=== PATIENT | female | born 2000 | race Caucasian/White ===

== ENCOUNTER 2021-01-28 16:05 | Observation (INO) | payer OTHER, SELFPAY ==
[2021-01-28] VITALS (9 sets, daily range): BP systolic 87–131; BP diastolic 54–64; PULSE 64–79
--- NOTE | 2021-01-28 16:48 | PC.NURSE ---
1637- called,informed pt came in by ambulance for what was reported as abdominal pain. On assessment of pt, numerous open sores noted all over pt's arms and legs. 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 Pt is sweating, shaking, fidgeting non stop with the belly band. Pt is c/o rectal pressure and discomfort. SVE performed, pt urinated during exam but cervix is closed,thick and high. I questioned pt about her behavior and asked if she is on any drugs or alcohol now and she denies any use since Feb 2020. I informed pt I would be sending a urine for a drug screen. I also asked pt why she appears so nervous, she said she is just all worked up . Pt continues to change where the pain is and how often she feels is. She has said its rectal pressure, then abdominal discomfort all across the bottom of her abdomen, then uncomfortable between her butt and belly. ordered UDS and UA.
[2021-01-28 18:10] LABS: Amphetamine Screen Urine Negative (Negative); Barbiturate Screen Urine Negative (Negative); Benzodiazepines Screen Urine Negative (Negative); Cannabinoid Screen Urine Positive (Negative); Cocaine Screen Urine Negative (Negative); Methadone Screen Urine Negative (Negative); Opiate Screen Urine Negative (Negative); Phencyclidine Screen Urine Negative (Negative)
[2021-01-28 18:31] LABS: Add Urine Microscopic? YES; Amorphous Sediment Urine Few; Appearance Urine Cloudy (Clear); Bilirubin Urine Negative (Negative); Blood Urine Negative (Negative); Color Urine Yellow (Yellow); Glucose Urine UA Negative (Negative); Ketones Urine Negative (Negative); Leukocyte Esterase Ur Negative LEU/UL (Negative); Nitrate Urine Negative (Negative); Protein Urine Negative (Negative); Specific Grav Ur 1.013 (1.001-1.035); Squamous Epithelial Cell Urine Many /hpf (Few); Urobilinogen Urine Negative mg/dL (<2.0)
--- NOTE | 2021-01-28 18:43 | OBADM ---
This patient, Yue Burns, admitted to the OB room OB Post 113 for observation. Patient/family oriented to hospital policies and general routines including ID bracelet, bed and alarms, visiting hours, pain management, procedures, bathroom and other care routines, personal items, smoking policy, room service/diet, and visiting hours. Patient/Family are encouraged to report perceived risks to care and to ask questions if they do not understand what they are told or what they should do.
--- NOTE | 2021-01-28 19:03 | PC.NURSE ---
Tylenol and food offered to pt. pt states she is feeling much better and would prefer to be d/c'd home. informed pt I would call dr. suarez for orders
--- NOTE | 2021-02-18 12:55 | PM.OBTRLD ---
OB - Triage/Final Diagnosis Visit Information Comments/Additional reasons for admission: I have assessed the risk for this patient, Yue Burns, and determined that she would benefit from observation care. Evaluation Laboratory results: Laboratory Tests 01/28/21 01/28/21 16:58 16:58 Urine Color Yellow Urine Appearance Cloudy H Urine pH 7.0 Ur Specific [place] 1.013 Urine Protein Negative Urine Glucose (UA) Negative Urine Ketones Negative Ur Blood (Man) Negative Urine Nitrate Negative Urine Bilirubin Negative Urine Urobilinogen Negative Leukocyte Esterase Rfl Negative Ur Squamous Epith Cells Many H Amorphous Sediment Few H Urine Opiates Screen Negative Urine Methadone Screen Negative Ur Barbiturates Screen Negative Ur Phencyclidine Scrn Negative Ur Amphetamine Screen Negative U Benzodiazepines Scrn Negative Urine Cocaine Screen Negative U Cannabinoids Screen Positive A Final Diagnosis (1) Abdominal pain affecting : Code(s): O26.899 - Other specified related conditions, unspecified trimester; R10.9 - Unspecified abdominal pain Status: Acute
== END 2021-01-28 19:24 | disposition home or self-care (01) ==
PROVIDERS: Admitting Provider Student in an Organized Health Care Education/Training Program; Visit Provider Student in an Organized Health Care Education/Training Program
DX: O26.892 Other specified pregnancy related conditions, second trimester (principal); R10.9 Unspecified abdominal pain; Z3A.27 27 weeks gestation of pregnancy
CPT/HCPCS: 80307; 81001; G0378; G0379

== ENCOUNTER 2023-04-06 11:38 | Observation (INO) | payer OTHER, SELFPAY ==
--- NOTE | 2023-04-06 11:32 | PC.NURSE ---
While starting to triage patient for n/v she began to c/o lower abdominal cramping. Padmaja, allied health instructor, given brief report and said she would take patient. invasive cardiovascular technologist to transport pt via wheelchair. Patient , GILBERTO 06/17, followed by Dr. Domínguez.
[2023-04-06 11:33] VITALS: BP 140/93; PULSE 89; RESP 16; TEMP 36.4; O2SAT 100
[2023-04-06 11:54] VITALS: BP 125/76; PULSE 79; RESP 20; TEMP 36.2
[2023-04-06 13:01] VITALS: BMI 38.3
--- NOTE | 2023-04-06 13:01 | OBADM ---
This patient, Yue Burns, admitted to the OB room OB 116 for observation for nausea/vomiting Patient/family oriented to hospital policies and general routines including ID bracelet, bed and alarms, visiting hours, pain management, procedures, bathroom and other care routines, personal items, smoking policy, room service/diet, and visiting hours. Patient/Family are encouraged to report perceived risks to care and to ask questions if they do not understand what they are told or what they should do.
[2023-04-06 13:02] LABS: Basophils Absolute Auto 0.1 K/mm3 (0.0-0.1); Basophils Percent Auto 0.5 % (0.2-1.2); Eosinophils Percent Auto 0.3 % (0-4.4); Hematocrit 29.5 % (37.0-47.0); Hemoglobin 9.8 g/dL (12.0-15.0); Immature Granulocyte Absolute 0.08 K/mm3 (0.00-0.031); Immature Granulocyte Percent A 0.6 % (0-0.5); Lymphocytes Absolute Auto 2.16 K/mm3 (0.9-3.2); Lymphocytes Percent Auto 16.2 % (18.3-44.2); Mean Corpuscular HGB Conc 33.2 g/dl (32-36); Mean Corpuscular Hemoglobin 32.6 pg (26-34); Mean Platelet Volume 10.1 fl (7.4-10.4); Monocytes Absolute Auto 0.8 K/mm3 (0.1-0.6); Monocytes Percent Auto 5.9 % (2.6-8.5); Neutrophils Absolute Auto 10.2 K/mm3 (1.3-6.7); Neutrophils Percent Auto 76.5 % (45.5-73.1); Platelet Count Result 417 k/mm3 (150-375); Red Blood Count 3.01 M/mm3 (4.2-5.4); Red Cell Distribution Width 13.2 % (11.5-14.5); White Blood Count 13.3 K/mm3 (4.5-10.0)
[2023-04-06] MEDS: DEXTROSE 5%/LACTATED RINGERS 1,000 ML 999 ML IV CONT (13:03)
[2023-04-06] MEDS: ONDANSETRON INJ 4 MG/2 ML VIAL IV PUSH (13:12)
[2023-04-06] MEDS: FAMOTIDINE 20 MG/2 ML VIAL IV PUSH (13:12)
[2023-04-06 13:14] LABS: Alanine Aminotransferase 23 U/L (6-35); Albumin Level 3.9 g/dL (3.5-5.1); Alkaline Phosphatase 153 U/L (38-126); Anion Gap 9 mmol/L (8-16); Aspartate Amino Transferase 29 U/L (14-36); Bilirubin,Total 0.9 mg/dL (0.2-1.3); Blood Urea Nitrogen 8 mg/dL (7-17); Calcium 9.3 mg/dL (8.4-10.2); Carbon Dioxide 24 mmol/L (22-30); Chloride 106 mmol/L (98-107); Estimated CRCL calculation 177 ml/min; Estimated Glomerular Filt Rate > 60; Glucose 98 mg/dL (65-110); Potassium 3.5 mmol/L (3.4-5.0); Sodium 139 mmol/L (137-145)
--- NOTE | 2023-04-06 13:55 | PC.NURSE ---
RN to bedside. Pt states she is feeling much better, now able to leave urine specimen. Ice chips provided per pt request.
[2023-04-06 14:29] LABS: Appearance Urine Cloudy (Clear); Bacteria Urine 1+ /hpf; Bilirubin Urine 1+ (Negative); Blood Urine Negative (Negative); Color Urine Dark Yellow (Yellow); Glucose Urine UA 2+ mg/dL (Negative); Ketones Urine 4+ mg/dL (Negative); Leukocyte Esterase Ur Trace LEU/UL (Negative); Nitrate Urine Negative (Negative); Protein Urine 1+ mg/dL (Negative); RBC Urine 0-2 /hpf (0-2); Specific Grav Ur 1.024 (1.001-1.035); Squamous Epithelial Cell Urine Many /hpf (Few)
[2023-04-06 14:34] LABS: Add Urine Microscopic? YES
[2023-04-06] MEDS: SCOPOLAMINE 1 MG PATCH 1 PATCH TRANSDERM (15:16)
[2023-04-06] MEDS: PROMETHAZINE HCL 25 MG/ML AMPUL 12.5 MG IV PUSH (15:21)
[2023-04-06 15:29] VITALS: RESP 18; TEMP 36.5
[2023-04-06] MEDS: LACTATED RINGERS 1,000 ML 999 ML IV CONT (15:30)
[2023-04-06] MEDS: DEXTROSE 5%/LACTATED RINGERS 1,000 ML 125 ML IV CONT (16:35)
--- NOTE | 2023-04-06 17:50 | PC.NURSE ---
Discharge instructions given to pt and her mother. Pt verbalized understanding. IV removed, tip intact, bleeding controlled. No further questions or concerns.
--- NOTE | 2023-04-07 19:05 | P.PNOB_ITS ---
OB - Triage/Final Diagnosis Visit Information Date of evaluation: 04/06/23 Reason for evaluation: other (nausea) Comments/Additional reasons for admission: I have assessed the risk for this patient, Yue Burns, and determined that she would benefit from observation care. Evaluation Laboratory results: Laboratory Tests 04/06/23 04/06/23 12:55 14:05 WBC 13.3 H RBC 3.01 L Hgb 9.8 L Hct 29.5 L MCV 98.0 MCH 32.6 MCHC 33.2 RDW 13.2 Plt Count 417 H MPV 10.1 Immature Gran % (Auto) 0.6 H Neut % (Auto) 76.5 H Lymph % (Auto) 16.2 L [place] % (Auto) 5.9 Eos % (Auto) 0.3 Baso % (Auto) 0.5 Lymph # (Auto) 2.16 [place] # (Auto) 0.8 H Eos # (Auto) 0.0 Baso # (Auto) 0.1 Abs Immat Gran (auto) 0.08 H Absolute Neuts (auto) 10.2 H Absolute Nucleated RBC 0.0 Nucleated RBC % 0.0 Sodium 139 Potassium 3.5 Chloride 106 Carbon Dioxide 24 Anion Gap 9 BUN 8 Creatinine 0.50 L Estim Creat Clear Calc 177 Estimated GFR > 60 Glucose 98 Calcium 9.3 Total Bilirubin 0.9 AST 29 ALT 23 Alkaline Phosphatase 153 H Total Protein 7.0 Albumin 3.9 Urine Color Dark yellow Urine Appearance Cloudy H Urine pH 7.0 Ur Specific [place] 1.024 Urine Protein 1+ H Urine Glucose (UA) 2+ H Urine Ketones 4+ H Ur Blood (Man) Negative Urine Nitrate Negative Urine Bilirubin 1+ H Urine Urobilinogen 1.0 Leukocyte Esterase Rfl Trace H Urine RBC 0-2 Urine WBC 6-10 H Ur Squamous Epith Cells Many H Urine Bacteria 1+ H Urine Casts 3-5
== END 2023-04-06 17:55 | disposition home or self-care (01) ==
PROVIDERS: Admitting Provider Obstetrics & Gynecology; Visit Provider Obstetrics & Gynecology
DX: O21.9 Vomiting of pregnancy, unspecified (principal); O26.893 Other specified pregnancy related conditions, third trimester; R10.9 Unspecified abdominal pain; Z3A.29 29 weeks gestation of pregnancy
CPT/HCPCS: 36415; 80053; 81001; 85025; 87086; 96361; 96374; 96375; A9270; G0378; G0379; J2405; J2550; J7120; J7121

== ENCOUNTER 2023-05-31 21:34 | Observation (INO) | payer OTHER, SELFPAY ==
[2023-05-31 21:43] VITALS: BP 124/74; PULSE 79; RESP 16; TEMP 36.6
[2023-05-31 21:46] VITALS: BP 105/67; PULSE 109
[2023-05-31 22:12] VITALS: BMI 35.6
--- NOTE | 2023-05-31 22:12 | OBADM ---
This patient, Yue Burns, admitted to the OB room Labor/Delivery/Recovery 107 for observation. Patient/family oriented to hospital policies and general routines including ID bracelet, bed and alarms, visiting hours, pain management, procedures, bathroom and other care routines, personal items, smoking policy, room service/diet, and visiting hours. Patient/Family are encouraged to report perceived risks to care and to ask questions if they do not understand what they are told or what they should do.
--- NOTE | 2023-05-31 22:16 | PC.NURSE ---
Pt went to bathroom and RN visualized vape in pt bed. Pt stated that the vape belonged to her, RN educated pt on risks of vaping and smoking during as well as hospital smoking and vaping policy. pt verbalizes understanding.
[2023-05-31 22:21] LABS: Add Urine Microscopic? YES; Appearance Urine Clear (Clear); Bacteria Urine None Seen /hpf; Bilirubin Urine Negative (Negative); Blood Urine Non-Hemolyzed Trace (Negative); Color Urine Yellow (Yellow); Glucose Urine UA Negative (Negative); Ketones Urine Negative (Negative); Leukocyte Esterase Ur Trace LEU/UL (Negative); Need Manual Microscopic Reviewed; Nitrate Urine Negative (Negative); Non Pathogenic Casts 0-2; Protein Urine Trace mg/dL (Negative); Specific Grav Ur 1.009 (1.001-1.035); Squamous Epithelial Cell Urine Occasional /hpf (Few); WBC Urine 0-5 /hpf (0-3)
--- NOTE | 2023-06-15 21:59 | P.PNOB_ITS ---
OB - Triage/Final Diagnosis Visit Information Comments/Additional reasons for admission: I have assessed the risk for this patient, Yue Burns, and determined that she would benefit from observation care. Evaluation Laboratory results: Laboratory Tests 05/31/23 22:07 Urine Color Yellow Urine Appearance Clear Urine pH 7.0 Ur Specific [place] 1.009 Urine Protein Trace Urine Glucose (UA) Negative Urine Ketones Negative Ur Blood (Man) Non-hemolyzed trace H Urine Nitrate Negative Urine Bilirubin Negative Urine Urobilinogen 1.0 Add Ur Microanalysis Reviewed Leukocyte Esterase Rfl Trace H Urine RBC 3-5 H Urine WBC 0-5 Ur Squamous Epith Cells Occasional Urine Bacteria None seen Urine Casts 0-2 Final Diagnosis (1) Irregular contractions: Code(s): O47.9 - False labor, unspecified Status: Acute
== END 2023-05-31 23:06 | disposition home or self-care (01) ==
PROVIDERS: Admitting Provider Obstetrics & Gynecology; Visit Provider Obstetrics & Gynecology
DX: O47.9 False labor, unspecified (principal); Z3A.00 Weeks of gestation of pregnancy not specified
CPT/HCPCS: 81001; G0378; G0379

== ENCOUNTER 2023-06-03 19:07 | Inpatient (IN) | payer OTHER, SELFPAY ==
[2023-06-03] VITALS (63 sets, daily range): BP systolic 99–158; BP diastolic 53–102; PULSE 70–113; O2SAT 94–100; BMI 38.7
[2023-06-03 19:50] LABS: Basophils Percent Auto 0.3 % (0.2-1.2); Eosinophils Absolute Auto 0.1 K/mm3 (0-0.3); Eosinophils Percent Auto 0.9 % (0-4.4); Hematocrit 31.4 % (37.0-47.0); Hemoglobin 10.7 g/dL (12.0-15.0); Immature Granulocyte Absolute 0.08 K/mm3 (0.00-0.031); Immature Granulocyte Percent A 0.5 % (0-0.5); Lymphocytes Absolute Auto 2.84 K/mm3 (0.9-3.2); Lymphocytes Percent Auto 19.1 % (18.3-44.2); Mean Corpuscular HGB Conc 34.1 g/dl (32-36); Mean Corpuscular Hemoglobin 33.2 pg (26-34); Mean Corpuscular Volume 97.5 fl (80-100); Mean Platelet Volume 10.3 fl (7.4-10.4); Monocytes Percent Auto 6.7 % (2.6-8.5); Neutrophils Absolute Auto 10.8 K/mm3 (1.3-6.7); Neutrophils Percent Auto 72.5 % (45.5-73.1); Platelet Count Result 400 k/mm3 (150-375); Red Blood Count 3.22 M/mm3 (4.2-5.4); Red Cell Distribution Width 14.1 % (11.5-14.5); White Blood Count 14.9 K/mm3 (4.5-10.0)
--- NOTE | 2023-06-03 19:50 | LDADM ---
This patient, Yue Burns, was admitted to Labor/Delivery/Recovery 106 on 06/03/23 at 19:07. Plans for labor, pain management and were discussed with patient. Patient/family oriented to hospital policies and general routines including ID bracelet, bed and alarms, visiting hours, pain management, procedures, bathroom and other care routines, personal items, smoking policy, room service/diet and guest tray routines, security routines, and visiting hours. Patient/Family are encouraged to report perceived risks to care and to ask questions if they do not understand what they are told or what they should do. See OBIX for further documentation.
[2023-06-03] MEDS: LACTATED RINGERS 1,000 ML 125 ML IV CONT ×2 (20:26→22:00)
[2023-06-03] MEDS: ONDANSETRON INJ 4 MG/2 ML VIAL IV PUSH (20:27)
--- NOTE | 2023-06-03 20:38 | WPDANESEPP ---
Anes - Eval Pre Procedure Procedure: labor epidural Date/Time: 06/03/23 20:38 Surgeon: rose Preop Diagnosis: pain during labor Pre Op Diagnosis: CX Patient Data Age: 23 Gender: F Height: 1.68 m Weight: 109 kg Last Vital Signs Pulse 76 06/03/23 20:15 BP 134/100 H 06/03/23 20:15 Allergies Allergy/AdvReac Type Severity Reaction Status Date / Time No Known Allergies Allergy Verified 06/03/23 20:26 Home Medications Medication Instructions Recorded Confirmed Type Effexor 225 mg PO DAILY 04/06/23 04/06/23 History Vitamin 1 tab-cap PO DAILY 04/06/23 04/06/23 History lamotrigine 150 mg tablet 150 mg PO DAILY 04/06/23 04/06/23 History ondansetron 4 mg disintegrating 4 mg PO Q6H #30 tabs 04/06/23 Rx tablet quetiapine 300 mg tablet 300 mg PO HS 04/06/23 04/06/23 History quetiapine 50 mg tablet 50 mg PO TID 04/06/23 04/06/23 History Laboratory Tests 06/03/23 19:42 WBC 14.9 H K/mm3 (4.5-10.0) RBC 3.22 L M/mm3 (4.2-5.4) Hgb 10.7 L g/dL (12.0-15.0) Hct 31.4 L % (37.0-47.0) MCV 97.5 fl (80-100) MCH 33.2 pg (26-34) MCHC 34.1 g/dl (32-36) RDW 14.1 % (11.5-14.5) Plt Count 400 H k/mm3 (150-375) MPV 10.3 fl (7.4-10.4) Immature Gran % (Auto) 0.5 % (0-0.5) Neut % (Auto) 72.5 % (45.5-73.1) Lymph % (Auto) 19.1 % (18.3-44.2) [place] % (Auto) 6.7 % (2.6-8.5) Eos % (Auto) 0.9 % (0-4.4) Baso % (Auto) 0.3 % (0.2-1.2) Lymph # (Auto) 2.84 K/mm3 (0.9-3.2) [place] # (Auto) 1.0 H K/mm3 (0.1-0.6) Eos # (Auto) 0.1 K/mm3 (0-0.3) Baso # (Auto) 0.0 K/mm3 (0.0-0.1) Abs Immat Gran (auto) 0.08 H K/mm3 (0.00-0.031) Absolute Neuts (auto) 10.8 H K/mm3 (1.3-6.7) Absolute Nucleated RBC 0.000 K/mm3 (0.0-0.012) Nucleated RBC % 0.0 % (0.0-0.2) RPR Pending Blood Type A Positive Antibody Screen Pending Patient hx anesthesia problems: none Family hx anesthesia problems: none Results Review: All pre-operative results and documents have been reviewed as part of the pre-operative evaluation. [facility] Past Medical History Medical History (Updated 06/03/23 @ 20:39 by Shanell Ritter CRNA) Anxiety Bipolar 1 disorder Depression IUP (intrauterine ), incidental Obesity (BMI 30-39.9) Social History Social History Smoking status: Former smoker Tobacco type: cigarettes Second hand tobacco smoke exposure: No Do You Feel Safe in your Home?: No Lack of Transportation: No Lack of Food: Never True Current Housing: I Have Housing Concerned About Future Housing: No Difficulty Paying Gas/Electric Bills: No Difficulty Paying for Meds: No Currently Unemployed: No Education: High School Diploma/GED Difficulty w/ Childcare or Family Care: No Spiritual care concerns: No Exam Day of Procedure 06/03/23 20:38
[2023-06-04] VITALS (54 sets, daily range): BP systolic 107–148; BP diastolic 58–115; PULSE 66–149; RESP 18; TEMP 36.1–36.8; O2SAT 97–100
[2023-06-04] MEDS: LACTATED RINGERS 1,000 ML 125 ML IV CONT (01:12)
[2023-06-04 04:11] LABS: Amphetamine Screen Urine Negative (Negative); Barbiturate Screen Urine Negative (Negative); Benzodiazepines Screen Urine Negative (Negative); Cannabinoid Screen Urine Positive (Negative); Cocaine Screen Urine Negative (Negative); Methadone Screen Urine Negative (Negative); Opiate Screen Urine Negative (Negative); Phencyclidine Screen Urine Negative (Negative)
[2023-06-04] MEDS: OXYTOCIN 30 UNITS/NS 500 ML 30 UNITS/500 ML BAG 999 UNITS IV CONT (04:47)
[2023-06-04] MEDS: miSOPROStol 200 MCG TABLET 1000 MCG RECTAL (04:56)
--- NOTE | 2023-06-04 05:08 | PM.OBPRVD ---
OB - Vaginal Delivery Note Procedure Delivery date: 06/04/23 Induction method: None Delivery augmentation: Rupture of Membranes Delivery monitor: External FHT and External Uterine Route of delivery: Laceration Description: Periurethral and Perineal - 2nd Degree Delivery repair: vicryl Specimen: Yes Quantitative Blood Loss (ml): 700 Anesthesia type: Epidural Complications: No immediate complications Baby Date of : 06/04/23 Time of : 04:42 Weeks of gestation at delivery: 38 Infant gender: Male presentation: vertex Cord Vessel Description: 3 Vessels
[2023-06-04] MEDS: OXYTOCIN 30 UNITS/NS 500 ML 30 UNITS/500 ML BAG 125 UNITS IV CONT (05:33)
[2023-06-04] MEDS: IBUPROFEN 600 MG TABLET PO ×2 (06:35→20:52)
--- NOTE | 2023-06-04 09:38 | PCCCNOTE ---
Addendum entered by EBONY Sanchez 06/04/23 11:16: Received a call from [facility] field traffic investigator, Jose, reporting she will be out to see pt. today. She is unsure if they will have all necessary information this weekend to make decision on going home with mom or not. Original Note: Care Coordination. Patient referred to CC for current [facility] case with 2 year old daughter. Pt. also had positive UDS for marijuana, but baby was not tested. Met with pt. at bedside and her mother was sleeping on couch. Pt. reports having positive support at home living with her parents. She reports has been working with [facility] and close to getting 2 year old back. Two year old is in foster care. She reports FOB is same for both and he lives in [place]. She reports having all necessary baby care items and denies that marijuana use is an issue. She did not feel she would need any center resources either. She reports has been in contact with [facility] and plans to fully setup after returning home with baby. Pt. reports she was diagnosed with Asperger and bipolar depression. She reports seeing 2 different counselors weekly one for each and reports doing well with it. Spoke with Serena Hernandez at [facility] Hotline and she will take pt.'s situation as report and have a worker come out to see pt. Intake . Message left to notify Mira CHILEL. Will follow.
--- NOTE | 2023-06-04 12:25 | PC.NURSE ---
DCFS worker here to see mom, but she is downstairs seeing baby in the level 2 nursery. Copy of badge taken and placed in chart. [facility] worker sent downstairs to nursery to talk to mother
--- NOTE | 2023-06-04 14:14 | PC.NURSE ---
Accidently clicked on the transfer assessment, could not get out of it without charting something, charted and then undid the assessment
[2023-06-04] MEDS: ACETAMINOPHEN 325 MG TABLET 650 MG PO (14:30)
[2023-06-05] VITALS (11 sets, daily range): BP systolic 100–133; BP diastolic 52–93; PULSE 77–98; RESP 16–19; TEMP 36.5–36.9; O2SAT 99–100
[2023-06-05 05:50] LABS: Hematocrit 20.5 % (37.0-47.0); Hemoglobin 6.7 g/dL (12.0-15.0)
--- NOTE | 2023-06-05 07:25 | PCCCNOTE ---
Care Coordination Note: Notified Bijal Lawler at [facility] hotline this a.m. that baby transferred last night to [facility]. Intake ID#[id number] for this call.
[2023-06-05] MEDS: SODIUM CHLORIDE 0.9% IV 250 ML 30 ML IV CONT (08:44)
[2023-06-05] MEDS: IBUPROFEN 600 MG TABLET PO (08:45)
[2023-06-05] MEDS: DOCUSATE SODIUM 100 MG CAPSULE PO (08:45)
[2023-06-05] MEDS: POLYSACCHARIDE IRON COMPLEX 150 MG CAPSULE PO (08:45)
[2023-06-05] MEDS: WITCH HAZEL 40 PADS 1 PAD TOPICAL (08:46)
--- NOTE | 2023-06-05 09:01 | WPDANLDPN2 ---
Anes-Prog Note L&D Date/Time: 06/05/23 09:01 Comfortable throughout: labor and delivery Neuraxial method: epidural Epidural/Spinal procedure site: clean & non-tender Neuro status: Neuro function grossly intact. Cardiovascular status: normal Respiratory status: normal Airway patency: baseline Mental status: baseline Post-Op hydration status: normal Vital Signs: Last Vital Signs Temp 98.5 F 06/05/23 08:58 Pulse 77 06/05/23 08:58 Resp 18 06/05/23 08:58 BP 113/76 06/05/23 08:58 Pulse Ox 100 06/05/23 08:58 O2 Del Method Room Air 06/04/23 14:30 Pain score (VAS): 0 I/O: Intake & Output 06/04/23 06/05/23 06/05/23 23:59 07:59 15:59 Intake Total 240 Balance 240 Post-procedural complaints: none Patient feedback: Patient satisfied with anesthetic care.
--- NOTE | 2023-06-05 10:29 | P.PNOB_ITS ---
OB - PN: Subj Subjective Date/time seen: 06/05/23 10:29 Patient comments: no complaints, pain well controlled, incisional pain, tolerating diet and flatus present OB - PN: Obj Data Labs 06/05/23 05:26 Labs: Laboratory Results - last 24 hr 06/03/23 06/05/23 19:42 05:26 Hgb 6.7 L* D Hct 20.5 L* Blood Type A Positive Antibody Screen Negative Crossmatch See Detail OB - PN A/P Plan day: 1 Plan: routine care Comments: No problems, routine care Time Spent With Patient Time: Total time spent is greater than 50% in coordination of care (as documented) at patient's floor/unit and/or counseling patient: Exam Const: General: comfortable, no acute distress and alert Resp: Effort & Inspection: normal respiratory effort Auscultation: no crackles, no rales and no rhonchi Cardio: Rate: regular rate Heart sounds: no click, no murmurs and no rubs GI: Inspection: non-distended GI Palp: No Tenderness to palpation present ( GI) Auscultation: normal bowel sounds Other: Incision - CDI Extrem: General: normal to inspection, no pedal edema and no calf tenderness
--- NOTE | 2023-06-05 10:31 | PM.OBDSVD ---
DS: Admitting Diagnosis Discharge Date June 05, 2023 Admitting Diagnosis term DS: Discharge Diagnosis Discharge Diagnosis (1) Post term , delivered: Code(s): O48.0 - Post-term Status: Acute OB - DS: Summary OB Procedures : None OB Procedures Intrapartum: Spontaneous Vag Delivery OB Procedures: : None Peripartum Data Laceration Description: Periurethral and Perineal - 2nd Degree Time Spent with Patient Time attestation: Total time spent providing and/or coordinating discharge services: DS: Data Data Completed and Pending Pending studies at discharge: Pending at discharge 06/04/23 05:46 Surgical [PTH] Routine Labs on day of discharge: Labs from last 24 hours 06/05/23 06/03/23 05:26 19:42 Hgb 6.7 L* D Hct 20.5 L* Blood Type A Positive Antibody Screen Negative Crossmatch See Detail Discharge Plan Discharge Discharging Clinician: Wilian Domínguez Patient Disposition: Home, Self-Care Activity: pelvic rest Diet: regular Patient Instructions: Antibiotic Form Stand Alone Forms: General Discharge Information Follow-up/Referrals: Wilian Domínguez MD [Physician] - Discharge Medications: Continued lamotrigine 150 mg tablet 150 mg PO DAILY quetiapine 300 mg tablet 300 mg PO HS quetiapine 50 mg tablet 50 mg PO TID Effexor 225 mg PO DAILY Vitamin 1 tab-cap PO DAILY ondansetron 4 mg Tablet,Disintegrating 4 mg PO Q6H Qty: 30 0RF Date of admission: 06/03/23 19:07 Primary Care Provider: LettyCarolina Admitting Provider: Wilian Domínguez Attending physician on admission: Wilian Domínguez Condition: Stable
[2023-06-06 15:23] VITALS: BP 137/88; PULSE 90; RESP 18; TEMP 36.8; O2SAT 100
[2023-06-07 12:36] LABS: Rapid Plasma Reagin Non-Reactive (NonReactive)
== END 2023-06-05 14:53 | disposition home or self-care (01) | DRG 560 ==
LOC: ANHLDR 19:29 → ANHOB2 06-04 07:36
PROVIDERS: Admitting Provider Obstetrics & Gynecology; PCP Nurse Practitioner Family; Visit Provider Obstetrics & Gynecology
DX: O77.0 Labor and delivery complicated by meconium in amniotic fluid (principal); O71.82 Other specified trauma to perineum and vulva; O70.1 Second degree perineal laceration during delivery; Z3A.38 38 weeks gestation of pregnancy; Z37.0 Single live birth
CPT/HCPCS: 36415; 36430; 80307; 85014; 85018; 85025; 86592; 86850; 86900; 86901; 86923; 88307; A9270; J2405; J2590; J2795; J7050; J7120; P9016

== ENCOUNTER 2024-09-01 14:02 | Observation (INO) | payer OTHER, SELFPAY ==
--- OUTSIDE RECORDS SUMMARY | 2024-09-01 14:08 | XMS_ITS | Clinical Summary ---
Author Organization [facility] Address [address] [place] [address] Phone Care Team Providers Care Nut Feeder Name Role Phone Provider, None Primary Care Provider Unavailabl e Allergies No known active allergies Medications Venlafaxine HCl (EFFEXOR PO) Take 225 mg by mouth daily. Active QUEtiapine (SEROquel) 200 MG Tablet Take 75 mg by mouth 2 times daily. 200 mg at night Active lamoTRIgine (LaMICtal) 25 MG Tablet Take 25 mg by mouth daily. Active melatonin 3 MG Tablet Take 10 mg by mouth nightly. Active ondansetron (ZOFRAN-ODT) 4 MG TABLET DISPERSIBLE Take 1 Tablet by mouth every 8 hours as needed for Nausea - 1st line. 10 Tablet 06/02/2020 Active Social History Tobacco Use Types Packs/Day Years Used Date Smoking Tobacco: Every Day Cigarettes 0.5 2 Smokeless Tobacco: Never Alcohol Use Standard Drinks/Week Comments Never 0 (1 standard drink = 0.6 oz pur e alcohol) Comments Unknown Sex and Gender Information Value Date Recorded Sex Assigned at Not on file Legal Sex Female 5:17 PM CDT Gender Identity Not on file Sexual Orientation Not on file Last Filed Vital Signs Vital Sign Reading Time Taken Comments Blood Pressure 92/63 06/02/2020 2:55 PM CDT Pulse 66 06/02/2020 2:55 PM CDT Temperature 37.2 C (99 F) 06/02/2020 11:47 AM CDT Respiratory Rate 18 06/02/2020 2:55 PM CDT Oxygen Saturation 100% 06/02/2020 2:55 PM CDT Inhaled Oxygen Concentration - - Weight 81.6 kg (180 lb) 06/02/2020 11:47 AM CDT Height 172.7 cm (5' 8) 06/02/2020 11:47 AM CDT Body Mass Index 27.37 06/02/2020 11:47 AM CDT Plan of Treatment Not on file Insurance MEDICAID [place] Care Teams Nut Feeder Relationship Specialty Start Date End Date Provider, Albin MCKEON PCP - General 05/04/20
--- OUTSIDE RECORDS SUMMARY | 2024-09-01 14:08 | XMS_ITS | Encounter Summary ---
Author Organization [facility] Address [facility] [place] [address] Care Team Providers Care Aerophysics Engineer Name Role Phone Carolian Saenz [facility] Primary Care Provider + Bianca Farr MD Unavailable [phone] Daniela Kamara [facility] Primary Care Provider + Reason for Referral * Medication (Routine) - Closed Specialty Diagnoses / Procedures Referred By Contac t Referred To Contact INFUSION THERAPY / [facility] Infusion Therapy Diagnoses Gonorrhea Procedures CEFTRIAXONE SODIUM INJECTION rocephin IM [facility] [address] [place] [address] Phone: tel: [facility] [address] [place] [address] Phone: tel: Referral ID Status Reason Start Date Expiration Date V isits Requested Visits Authorized [id number] Closed Specialty Services 09/05/2020 10/06/2021 1 1 Encounter Details Date Type Department Care Team (Late st Contact Info) Description 09/05/2020 Therapy Plan [facility] [address] [place] [address] Filomena Spring MD [address] [place] [address] Social History Tobacco Use Types Packs/Day Years Used Date Smoking Tobacco: Light Smoker Cigarettes Smokeless Tobacco: Never Comments:vapes with no nicot ine Alcohol Use Standard Drinks/Week Comments No 0 (1 standard drink = 0.6 oz pur e alcohol) AUDIT-C Answer Date Recorded Frequency of Alcohol Consumption Never 07/19/2018 Average Number of Drinks Not on file 019 Frequency of Binge Drinking Not on file 06/22 PHQ-2 Answer Date Recorded PHQ-2 Score - If the patient scores above 3, please move on to questions 3-9 6 07/24/2019 Comments Yes Sex and Gender Information Value Date Recorded Sex Assigned at Female 12/25/2018 3:42 PM SOUND ENGINEERING TECHNICIAN Legal Sex Female 7:39 PM CDT Gender Identity Female 12/25/2018 3:42 PM SOUND ENGINEERING TECHNICIAN Sexual Orientation Straight 12/25/2018 3: 42 PM SOUND ENGINEERING TECHNICIAN COVID-19 Exposure Response Date Recorded In the last month, have you been in contact with someone who was confirmed or suspected to have Coronavirus / COVID-19? No / Unsure 09/04/2020 10:28 AM CDT documented as of this encounter Plan of Treatment Scheduled Referrals Name Type Priority Associated Diagnoses Orde r Schedule Ambulatory referral to Infusion Therapy Referral Routine Gonorrhea Ordered: 09/05/2020 documented as of this encounter Visit Diagnoses Diagnosis Gonorrhea- Primary Gonococcal infection (acute) of lower genitourinary tract documented in this encounter Additional Health Concerns Infection Onset Date Last Indicated Resolved Time COVID-19 Rule Out 12/18/2020 12/18/2020 12/18/2020 7:26 AM CDT COVID-19 Rule Out 12/18/2020 12/18/2020 12/19/2020 7:22 PM CDT COVID-19 Rule Out 10/29/2021 10/29/2021 10/29/2021 8:34 AM CDT COVID-19 Rule Out 02/23/2024 02/23/2024 02/23/2024 3:58 PM SOUND ENGINEERING TECHNICIAN Assessment Noted Time PHQ-9 Depression Total Score: 15 020 2:09 PM CDT documented as of this encounter Care Teams Aerophysics Engineer Relationship Specialty Start Date End Date Carolina Saenz FNP-BC PCP - General Nurse Practitioner Family 07/19/18 Daniela Kamara, [facility] [address], [address] [place] [address] [phone] PCP - General Nurse Practitioner Family 12/13/22 Bianca Farr MD [address] [place] [address] Child and Adolescent Psychiatry 07/19/18 documented as of this encounter
--- OUTSIDE RECORDS SUMMARY | 2024-09-01 14:08 | XMS_ITS | Clinical Summary ---
Author Organization [facility] Address [address] [place] [address] Care Team Providers Care School Age Lead Teacher Name Role Phone Bianca Farr MD Unavailable [phone] Daniela Kamara [facility] Primary Care Provider + Allergies No known active allergies Medications lamoTRIgine 150 MG tablet Take 1 tablet (150 mg total) by mouth daily. Active busPIRone 15 MG tablet Take 1 tablet (15 mg total) by mouth 2 (two) times daily. Active melatonin 5 MG tablet Take 2 tablets (10 mg total) by mouth nightly as needed. Active Doxylamine Succinate, Sleep, (UNISOM OR) Take 1 tablet by mouth daily. 0 Active Ferrous Sulfate (IRON) 325 (65 Fe) MG tablet Take 1 tablet by mouth daily. 1 Active ondansetron 4 MG disintegrating tablet Take 1 tablet (4 mg total) by mouth every 8 (eight) hours as needed for Nausea. 15 tablet 2 Active ondansetron (ZOFRAN-ODT) 4 MG disintegrating tablet Take 1 tablet (4 mg total) by mouth every 8 (eight) hours as needed for Nausea. 10 tablet 2 Active busPIRone (BUSPAR) 15 MG tablet every 12 (twelve) hours. Active QUEtiapine (SEROQUEL) 200 MG tablet Take 1 tablet (200 mg total) by mouth nightly at bedtime. 2 Active QUEtiapine (SEROQUEL) 300 MG tablet Take 1 tablet (300 mg total) by mouth nightly at bedtime. Active QUEtiapine (SEROQUEL) 50 MG tablet Take 1 tablet (50 mg total) by mouth 2 (two) times daily. 3 Active venlafaxine XR (EFFEXOR-XR) 150 MG 24 hr capsule Take 1 capsule (150 mg total) by mouth daily with breakfast. 3 Active venlafaxine XR (EFFEXOR-XR) 75 MG 24 hr capsule Take 1 capsule (75 mg total) by mouth daily with breakfast. 3 Active doxylamine (UNISOM) 25 MG tablet daily. Active lamoTRIgine (LAMICTAL) 100 MG tablet Take 1 tablet (100 mg total) by mouth daily. 3 Active lamoTRIgine (LAMICTAL) 150 MG tablet daily. Active lamoTRIgine (LAMICTAL) 25 MG tablet Take 1 tablet (25 mg total) by mouth daily. 2 Active Active Problems Problem Noted Date Diagnosed Date Vaginal delivery ([facility]) 04/19/2021 Encounter for elective induction of labor ([facility]) 04/16/2021 Immunizations Immunization Administration Dates Next Due Dtap ([facility]cel-Immune) 04/06/2005, 3,2001,09/21,2001 HPV GARDASIL 9-VALENT 03/08/2016,11/22/2015,07/23 Hepatitis A (Generic) 08/20/2009,01/27/2007 Hepatitis B Pediatric 2001,2001,02/21 Hib (Generic) 08/21/2002, 2,2001,08/2001 Influenza (Generic) 01/27/2007,02/08/2003,2002 Influenza Adult (Generic) 03/22/2019,,03/08/2016,02/21,12/27/2013 MENINGOCOCCAL A C Y&W-135 oligosaccharide (MENVEO) 10/09/2012 MMR (MMRII) 04/06/2005,03/21/2002 Pneumococcal (Prevnar 7) 08/21/2002,09/21,2001,02/21 Polio IPV (Ipol) 04/06/2005, 2,2001,0306/2001 Tdap (Generic) 02/03/2021,10/09/2012 Varicella (Varivax) 01/27/2007,03/21/2002 Family History * Patient is adopted Medical History Relation Comments None Brother 1 None Brother 2 None Father None Half-brother 1 None Half-brother 2 None Half-brother 3 None Half-sister None Mother Relation Status Comments Brother 1 Alive Brother 2 Alive Father Alive Half-brother 1 Alive Half-brother 2 Alive Half-brother 3 Alive Half-sister Alive Mother Alive Social History Tobacco Use Types Packs/Day Years Used Date Smoking Tobacco: Former Cigarettes Smokeless Tobacco: Never Tobacco Cessation:Counseling Given: No Comments:vapes with no nicotine Alcohol Use Standard Drinks/Week Comments No 0 (1 standard drink = 0.6 oz pur e alcohol) AUDIT-C Answer Date Recorded Frequency of Alcohol Consumption Never 07/19/2018 Average Number of Drinks Not on file 019 Frequency of Binge Drinking Not on file 06/22 PHQ-2 Answer Date Recorded Patient Health Questionnaire-2 Score 0 08/13/2022 Comments No Sex and Gender Information Value Date Recorded Sex Assigned at Female 12/25/2018 3:42 PM BLEACHER OPERATOR Legal Sex Female 7:39 PM CDT Gender Identity Female 12/25/2018 3:42 PM BLEACHER OPERATOR Sexual Orientation Straight 12/25/2018 3: 42 PM BLEACHER OPERATOR Last Filed Vital Signs Vital Sign Reading Time Taken Comments Blood Pressure 121/82 02/23/2024 12:19 PM BLEACHER OPERATOR Pulse 80 02/23/2024 12:19 PM BLEACHER OPERATOR Temperature 36.7 C (98 F) 02/23/2024 12:19 PM BLEACHER OPERATOR Respiratory Rate 18 02/23/2024 12:19 PM BLEACHER OPERATOR Oxygen Saturation 99% 02/23/2024 12:19 PM BLEACHER OPERATOR Inhaled Oxygen Concentration - - Weight 109.3 kg (241 lb) 02/23/2024 12:19 PM BLEACHER OPERATOR Height 167.6 cm (5' 6) 02/23/2024 12:19 PM BLEACHER OPERATOR Body Mass Index 38.9 02/23/2024 12:19 PM BLEACHER OPERATOR Plan of Treatment Health Maintenance Due Date Last Done Comments Cervical Cancer Screening Pap Smear (Age 21 to 29) Every 3 Years 2001 Cervical Cancer Screening 2001 Annual Physical 01/10/2004 Chlamydia Screening Females ages 16-24 2017 Meningococcal B Vaccine (1 of 2 - Standard) 2017 COVID-19 Vaccine (3 - season) 2023 07/19/2020, 06/21/2020 PHQ-2 (Physician [place]) 02/22/2024 DTaP, Tdap and Td Vaccines (8 - Td or Tdap) 02/03/2031 02/03/2021, 10/09/2012, 04/06/2005, Additional history exists Hepatitis B Vaccines Completed 2001, 2001, 2001 Pneumococcal Vaccine: Pediatrics (0 to 5 Years) and At-Risk Patients (6 to 49 Years) Aged Out 08/21/2002, 2001, 2001, Additional history exists No longer eligible based on patient's age to complete this topic Meningococcal Vaccine Aged Out 10/09/2012 No brodie clari eligible based on patient's age to complete this topic HPV Vaccines Completed 03/08/2016, 02/2015, 08/19/2015 Hepatitis C Completed 07/24/2019 RSV Immunizations Under 20 Months Aged Out No longer eligible based on patient's age to complete this topic Procedures Procedure Name Priority Date/Time Associated Diagnosis Comments HEPATITIS C ANTIBODY Routine 07/24/2019 2:35 PM CDT Potential exposure to STD from Last 3 Months or Most Recently Relevant to Health Maintenance Results * HEPATITIS C ANTIBODY (07/24/2019 2:35 PM CDT) HEPATITIS C AB NON-REACTI VE NON-REACTI VE 07/24/2019 9:17 PM CDT [facility] 07/24/2019 2:35 PM CDT [facility] Final Result [facility] [address] [place] [address], from Last 3 Months or Most Recently Relevant to Health Maintenance Insurance [facility] [facility] Advance Directives * Full Code (Latest Code Status on File) Date Activated Date Inactivated Comments 04/16/2021 10:44 AM 04/17/2021 9:11 AM Care Teams School Age Lead Teacher Relationship Specialty Start Date End Date Daniela Kamara, [employer] [address], [address] [place] [address] PCP - General Nurse Practitioner Family 12/13/22 Bianca Farr MD [address] [place] [address] Child and Adolescent Psychiatry 07/19/18
--- OUTSIDE RECORDS SUMMARY | 2024-09-01 14:08 | XMS_ITS | Encounter Summary ---
Author Organization [facility] Address [facility]ly [facility] [place] [address] Care Team Providers Care Asbestos Shingle Roofer Name Role Phone Letty Carolina [facility] Primary Care Provider + Bianca Farr MD Unavailable [phone] Daniela Kamara [facility] Primary Care Provider + Encounter Details Date Type Department Care Team (Late st Contact Info) Description 09/05/2020 Hospital Orders Only [facility] [address] [place] [address] Filomena Spring MD [address] [place] [address] Social History Tobacco Use Types [...] Sex Assigned at Female 12/25/2018 3:42 PM PHARMACEUTICAL SALES SPECIALIST Legal Sex Female 7:39 PM CDT Gender Identity Female 12/25/2018 3:42 PM PHARMACEUTICAL SALES SPECIALIST Sexual Orientation Straight 12/25/2018 3: 42 PM PHARMACEUTICAL SALES SPECIALIST COVID-19 Exposure Response Date Recorded In the last month, have you been in contact with someone who was confirmed or suspected to have Coronavirus / COVID-19? No / Unsure 09/04/2020 10:28 AM CDT documented as of this encounter Plan of Treatment Not on file documented as of this encounter Visit Diagnoses Not on filedocumented in this encounter Additional Health Concerns Infection Onset Date Last Indicated Resolved Time COVID-19 Rule Out 12/18/2020 12/18/2020 12/18/2020 7:26 AM CDT COVID-19 Rule Out 12/18/2020 12/18/2020 12/19/2020 7:22 PM CDT COVID-19 Rule Out 10/29/2021 10/29/2021 10/29/2021 8:34 AM CDT COVID-19 Rule Out 02/23/2024 02/23/2024 02/23/2024 3:58 PM PHARMACEUTICAL SALES SPECIALIST Assessment Noted Time PHQ-9 Depression Total Score: 15 020 2:09 PM CDT documented as of this encounter Care Teams Asbestos Shingle Roofer Relationship Specialty Start Date End Date Carolina Saenz [facility] PCP - General Nurse Practitioner Family 07/19/18 Daniela Kamara, [facility] [address], [address] [place] [id number] PCP - General Nurse Practitioner Family 12/13/22 Bianca Farr MD [address] [place] [address] Child and Adolescent Psychiatry 07/19/18 documented as of this encounter
--- OUTSIDE RECORDS SUMMARY | 2024-09-01 14:09 | XMS_ITS | Patient Health Record ---
Author Organization [facility] Address [address] [place] [address] Care Team Providers Care Pollution Control Engineer Name Role Phone Zack Chew Primary Care Provider GivensDenisebrodie Soria [phone] Allergies No Known Allergies Results Component Value Reference Range Notes Hemoglobin A1c* Reviewed date:01/06/2024 03:52:48 PM Interpretation: Performing Lab:[facility], [address] [facility], Phone - [phone], Director - Anibal Notes/Report: Hemoglobin A1c 5.3 4.8-5.6 % . Prediabetes: 5.7 - 6.4 Diabetes: >6.4 Glycemic control for adults with diabetes: <7.0 Vitamin B12* Reviewed date:01/06/2024 03:52:43 PM Interpretation: Performing Lab:[facility], [address], [place], Phone - [phone], Director - Anibal Notes/Report: Vitamin B12 534 484-1881 pg/mL CBC With Differential/Platel et* Reviewed date:01/06/2024 02:32:04 PM Interpretation: Performing Lab:[facility], [address], [place], Phone - [phone], Director - Anibal Notes/Report: WBC 7.8 3.4-10.8 x10E3/uL RBC 4.07 3.77-5.28 x10E6/uL Hemoglobin 12.5 11.1-15.9 g/dL Hematocrit 37.7 34.0-46.6 % MCV 93 79-97 fL MCH 30.7 26.6-33.0 pg MCHC 33.2 31.5-35.7 g/dL RDW 13.1 11.7-15.4 % Platelets 511 150-450 x10E3/uL Neutrophils 44 Not Estab. % Lymphs 41 Not Estab. % Monocytes 7 Not Estab. % Eos 7 Not Estab. % Basos 1 Not Estab. % Neutrophils (Absolute) 3.4 1.4-7.0 x10E3/uL Lymphs (Absolute) 3.2 0.7-3.1 x10E3/uL Monocytes(Absolute) 0.6 0.1-0.9 x10E3/uL Eos (Absolute) 0.5 0.0-0.4 x10E3/uL Baso (Absolute) 0.1 0.0-0.2 x10E3/uL Immature Granulocytes 0 Not Estab. % Immature Grans (Abs) 0.0 0.0-0.1 x10E3/uL Vitamin D, 25-Hydroxy* Reviewed date:01/06/2024 03:52:35 PM Interpretation: Performing Lab:[facility] [address] [facility], Phone - [phone], Director - PhDUmass Memorial Medical Centerramon Notes/Report: Vitamin D, 25-Hydroxy 14.3 30.0-100.0 ng/mL Vitamin D deficiency has been defined by the [place] of [employer] and an Endocrine Society practice guideline as a level of serum 25-OH vitamin D less than 20 ng/mL (1,2). The Endocrine Society went on to further define vitamin D insufficiency as a level between 21 and 29 ng/mL (2). 1. IOM ([place] of [employer]). 2010. Dietary reference intakes for calcium and D. [place]: The National Academies Press. 2. Bia MF, Jose NC, Bienvenido CAMP, et al. Evaluation, treatment, and prevention of vitamin D deficiency: an Endocrine Society clinical practice guideline. JCEM. 2010; 96(7):1911-30. TSH+Free T4* Reviewed date:01/06/2024 03:53:00 PM Interpretation: Performing Lab:[facility] [place], [address] [facility], Phone - [phone], Director - PhDRicchiuti Notes/Report: TSH 1.840 0.450-4.500 uIU/mL T4,Free(Direct) 1.11 0.82-1.77 ng/dL Lipid Panel* Reviewed date:01/06/2024 03:52:52 PM Interpretation: Performing Lab:[facility] [place], [address] [facility], Phone - [phone], Director - [facility] Notes/Report: Cholesterol, Total 182 100-199 mg/dL Triglycerides 110 0-149 mg/dL HDL Cholesterol 65 >39 mg/dL VLDL Cholesterol [place] 20 5-40 mg/dL LDL Chol Calc ([facility]) 97 0-99 mg/dL CMP 14 Comprehensive Metabol ic Panel* Reviewed date:01/06/2024 03:52:55 PM Interpretation: Performing Lab:[facility] [place], [address] [facility], Phone - [phone], Director - [facility] Notes/Report: Glucose 89 70-99 mg/dL BUN 10 6-20 mg/dL Creatinine 0.77 0.57-1.00 mg/dL eGFR 112 >59 mL/min/1.73 BUN/Creatinine Ratio 13 9-23 Sodium 138 134-144 mmol/L Potassium 4.7 3.5-5.2 mmol/L Chloride 104 96-106 mmol/L Carbon Dioxide, Total 20 20-29 mmol/L Calcium 9.6 8.7-10.2 mg/dL Protein, Total 7.9 6.0-8.5 g/dL Albumin 5.0 4.0-5.0 g/dL Globulin, Total 2.9 1.5-4.5 g/dL Bilirubin, Total 0.2 0.0-1.2 mg/dL Alkaline Phosphatase 81 44-121 IU/L AST (SGOT) 16 0-40 IU/L ALT (SGPT) 10 0-32 IU/L Hemoglobin A1c* Reviewed date:01/10/2024 09:23:29 AM Interpretation: Performing Lab: Notes/Report: Vitamin B12* Reviewed date:01/10/2024 09:23:16 AM Interpretation: Performing Lab: Notes/Report: CBC With Differential/Platel et* Reviewed date:01/10/2024 09:23:47 AM Interpretation: Performing Lab: Notes/Report: TSH+Free T4* Reviewed date:01/10/2024 09:23:20 AM Interpretation: Performing Lab: Notes/Report: Lipid Panel* Reviewed date:01/10/2024 09:23:24 AM Interpretation: Performing Lab: Notes/Report: CMP 14 Comprehensive Metabol ic Panel* Reviewed date:01/10/2024 09:23:35 AM Interpretation: Performing Lab: Notes/Report: Vitamin D, 25-Hydroxy* Reviewed date:01/10/2024 09:23:13 AM Interpretation: Performing Lab: Notes/Report: Reason For Referral Reason Warm hand off form e mailed for Suicide attempt on 12/24. No current SI. Diagnosis 1 Bipolar 2 disorder ( F31.81) Referral Organization [facility] Referring Provider First Name Luz Elena Referring Provider Last Name Tosha Referring Provider Speciality Psychiatry Referred Provider [facility] Clinical Notes Angelique Levi 01/05/2024 01:39:49 PM > Based off a telephone encounter the client is getting labs on 01-05-24. After labs Bhumi Givens will look at adjustments. Referral Priority Routine Reason Higher PHQ9. Had bee n hospitalized for SI. Meds changed today. Needs/wants to set up therapy. Having to give [place]. Diagnosis 1 Bipolar 2 disorder ( F31.81) Referral Organization [facility] Referring Provider First Name Luz Elena Referring Provider Last Name Tosha Referring Provider Speciality Psychiatry Referred Provider [facility] Clinical Notes Angelique Levi 03/09/2024 08:30:03 AM > PAULINE called client and provided the number for central access to initiate therapy. Client states she preferred to call on her own, PAULINE offered to make phone call with her.Gurmeet Kristina L 03/14/2024 11:08:36 AM >according to TIER, client has called to do the initial therapy intake. The note states that she is supposed to call back on Tue or to schedule her first appt. Note in TIER is from 03-13-24, Luba Patel 04/03/2024 02:56:28 PM > Austin Gurmeet monk Kristina L 04/06/2024 09:03:23 AM >HN called the client to follow up with therapy. HN checked TIER\Gurmeet Kristina L 04/09/2024 01:38:35 PM >HN tried to call the client back and was unable to reach the client. Referral letter sent to client. Can close out the referral if no communication by 3Gurmeet Kristina L 04/12/2024 11:34:29 AM >HN checked TIER. It does not look like client is active in TIER. Referral Priority Routine Medications Medication SIG (Take, Route, Frequency, Duration) Notes Start Date End Date Status lamoTRIgine 150 MG 1 tablet Orally Once a day; Duration: 30 days Active QUEtiapine Fumarate ER 400 MG 1 tablet in the evening Orally Once a day; Duration: 30 days 03/08/2024 Active SEROquel 50 MG 1 tablet morning and mid-day Orally twice a day; Duration: 30 days 05/14/2021 Active Vitamins 28-0.8 MG 1 tablet Ora lly Once a day; Duration: 30 days 07/26/2024 Active Venlafaxine HCl ER 75 MG 1 capsule with food (with 150mg ) Orally Once a day; Duration: 30 days 07/12/2023 Active Unisom 25 MG 1 tablet at bedtime as needed Orally Once a day; Duration: 30 day(s) Active Venlafaxine HCl ER 150 MG 1 capsule with food Orally Once a day; Duration: 30 days Active Ergocalciferol 1.25 MG (14305 UT) 1 capsule Orally once a week; Duration: 30 days 01/06/2024 Active Social History Tobacco Use: Social History Observation Description Date Details (start date - stop date) Former Smoker NA - NA Sex Assigned At : Social History Observation Description Sex Assigned At Female Tobacco Control (Standard) Question Answer Notes Tobacco use: Former smoker Problems Problem Type SNOMED Code ICD Code Onset Dates Problem Status W/U Status Risk Notes Problem Chronic alcoholism in remission (232731507) Alcohol dependence, in remission (F10.21) Active confirmed Problem Stimulant dependence (859168977) Other stimulant dependence, 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) Active confirmed Problem Tobacco user (041782124) Nicotine dependence, unspecified, uncomplicated (F17.200) Active confirmed Problem Post-traumatic stress disorder (35438288) Post-traumatic stress disorder, unspecified (F43.10) 2 Active confirmed Problem Autism (59150868) Autism (F84.0) 2 Active confirmed Problem Bipolar 2 disorder (94840953) Bipolar 2 disorder (F31.81) 2 Active confirmed Problem Chronic vaginitis (53778690) Chronic vaginitis (N76.1) Active confirmed Problem Cannabis dependence (68721441) Cannabis use disorder, severe, dependence (F12.20) Active confirmed Encounters Encounter Location Date Provider Diagnosis [address] [place] [address] 01/05/2024 Luz Elena Givens Bipolar 2 disorder F31.81 [address] [place] [address] 10/05/2023 Luz Elena Givens Bipolar 2 disorder F31.81 and Autism F84.0 [address] [place] [address] 01/03/2024 Luz Elena Givens Bipolar 2 disorder F31.81 and Autism F84.[address] [place] [address] 01/13/2024 Luz Elena Givens Bipolar 2 disorder F31.81 ; Autism F84.0 and Post-traumatic stress disorder, unspecified F43.10 [address] [place] [address] 03/08/2024 Luz Elena Givens Bipolar 2 disorder F31.81 ; Autism F84.0 and Post-traumatic stress disorder, unspecified F43.10 [address] [place] [address] 05/24/2024 Luz Elena Givens Autism F84.0 ; Bipolar 2 disorder F31.81 and Post-traumatic stress disorder, unspecified F43.10 [address] [place] [address] 07/26/2024 Luz Elena Givens Bipolar 2 disorder F31.81 ; Autism F84.0 and Post-traumatic stress disorder, unspecified F43.10 [address] [place] [address] 09/26/2023 Luz Elena Givens Bipolar 2 disorder F31.[address] [place] [address] 09/30/2023 Zack Chew Bipolar 2 disorder F31.81 [facility] [address] [place] [address] 12/26/2023 Luz Elena Givens Bipolar 2 disorder F31.[address] [place] [address] 01/04/2024 Luz Elena Givens [facility] [address] [place] [address] 01/05/2024 Zack Chew Bipolar 2 disorder F31.[address] [place] [address] 01/06/2024 Zack Chew [facility] [address] [place] [address] 01/17/2024 Luz Elena Givens [facility] [address] [address] 01/17/2024 Luz Elena Givens Bipolar 2 disorder F31.81 [address] [place] [address] 02/23/2024 Luz Elena Givens [address] [place] [address] 05/10/2024 Luz Elena Givens Bipolar 2 disorder F31.[address] [place] [address] 07/20/2024 Luz Elena Givens Autism F84.0 Assessments Encounter Date Diagnosis (ICD Code) Assessment Notes Treatment Notes Treatment Clinical Notes Section Notes 09/26/2023 Bipolar 2 disorder (ICD-10 - F31.81) 09/30/2023 Bipolar 2 disorder (ICD-10 - F31.81) 01/03/2024 Bipolar 2 disorder (ICD-10 - F31.81) CancelRx Response got Denied on 2024-01-05 16:44:03 for 'ARIPiprazole 5 MG Tablet'Pharmacy Notes: Unable to Cancel Rx. Please contact Pharmacy 01/05/2024 Bipolar 2 disorder (ICD-10 - F31.81) 01/05/2024 Bipolar 2 disorder (ICD-10 - F31.81) 10/05/2023 Bipolar 2 disorder (ICD-10 - F31.81) Continue current medications. Continue services as scheduled. Labs completed recently. May self-administer medications or be administered own oral medications per [facility] protocols. Provided informed consent with understanding of side effects, adverse effects, risks and benefits as well as alternative treatments as previously discussed and with the above recommended medications & other aspects of the treatment program. Agrees to return sooner if symptoms worsen or suicidal or homicidal ideations occur. 12/26/2023 Bipolar 2 disorder (ICD-10 - F31.81) 01/13/2024 Bipolar 2 disorder (ICD-10 - F31.81) Resume previous dose of Seroquel. Continue therapy. Contact Crisis line, hospital or 8, if symptoms worsen or having suicidal thoughts. May self-administer medications or be administered own oral medications per [facility] protocols. Provided informed consent with understanding of side effects, adverse effects, risks and benefits as well as alternative treatments as previously discussed and with the above recommended medications & other aspects of the treatment program. Agrees to return sooner if symptoms worsen or suicidal or homicidal ideations occur. 01/17/2024 Bipolar 2 disorder (ICD-10 - F31.81) 03/08/2024 Bipolar 2 disorder (ICD-10 - F31.81) Increase Seroquel to help with Mood instability and sleep. Continue services as scheduled- set up therapy. Labs completed recently. May self-administer medications or be administered own oral medications per [facility] protocols. Provided informed consent with understanding of side effects, adverse effects, risks and benefits as well as alternative treatments as previously discussed and with the above recommended medications & other aspects of the treatment program. Agrees to return sooner if symptoms worsen or suicidal or homicidal ideations occur. 05/10/2024 Bipolar 2 disorder (ICD-10 - F31.81) 05/24/2024 Autism (ICD-10 - F84.0) Continue current medications. Follow up with OB. Continue services as scheduled. Labs completed recently. May self-administer medications or be administered own oral medications per [facility] protocols. Provided informed consent with understanding of side effects, adverse effects, risks and benefits as well as alternative treatments as previously discussed and with the above recommended medications & other aspects of the treatment program. Agrees to return sooner if symptoms worsen or suicidal or homicidal ideations occur. 07/20/2024 Autism (ICD-10 - F84.0) 07/26/2024 Bipolar 2 disorder (ICD-10 - F31.81) Continue current medications. Continue services as scheduled. Labs completed recently. May self-administer medications or be administered own oral medications per [employer] protocols. Provided informed consent with understanding of side effects, adverse effects, risks and benefits as well as alternative treatments as previously discussed and with the above recommended medications & other aspects of the treatment program. Agrees to return sooner if symptoms worsen or suicidal or homicidal ideations occur. 07/26/2024 Autism (ICD-10 - F84.0) 05/24/2024 Bipolar 2 disorder (ICD-10 - F31.81) 01/13/2024 Autism (ICD-10 - F84.0) 03/08/2024 Autism (ICD-10 - F84.0) 01/03/2024 Autism (ICD-10 - F84.0) 10/05/2023 Autism (ICD-10 - F84.0) 01/13/2024 Post-traumatic stress disorder, unspecified (ICD-10 - F43.10) 03/08/2024 Post-traumatic stress disorder, unspecified (ICD-10 - F43.10) 05/24/2024 Post-traumatic stress disorder, unspecified (ICD-10 - F43.10) 07/26/2024 Post-traumatic stress disorder, unspecified (ICD-10 - F43.10) 01/03/2024 Other She has already restarted medication. Transition to Abilify instead of Seroquel. Labs ordered. Continue services as scheduled. Refferred to Crisis with a warm hand off. May self-administer medications or be administered own oral medications per [facility] protocols. Provided informed consent with understanding of side effects, adverse effects, risks and benefits as well as alternative treatments as previously discussed and with the above recommended medications & other aspects of the treatment program. Agrees to return sooner if symptoms worsen or suicidal or homicidal ideations occur. Plan Of Treatment Future Test Test Name Order Date HIV Screen *HIV 1, 2 Ab, p24 Ag ([id number]) 04/16/2020 Urinalysis, Routine 04/16/2020 RPR* 04/16/2020 Chlamydia trachomatis,Neisse elayne gonorrhoeae, and Trichomonas vaginalis, EDMOND ([id number]) 04/16/2020 Insurance Providers Payer Name Payer Address Payer Phone Subscriber Number Group Number Insured Name Patient Relationship to Insured Coverage Start Date Coverage End Date [employer] [address] [place] [address] [id number] Yue Burns Self - patient is the insured 0 [employer] [address] [place] [address] [id number] Yue Burns Self - patient is the insured 0 1 [employer] [address] [place] [address] [id number] Yue Burns Self - patient is the insured 2 2 [employer] [address] [place] [address] [id number] Yue Burns Self - patient is the insured 2 Medical (General) History Medical History History ICD Code Substance use disorder Autism spectrum MDD JAMES Split personality disorder Bipolar I disorder Surgical History Surgery Date(Month/Year) TM tubes x2 Removal of hemangioma Tonsillectomy Adenoidectomy Hospitalization History Reason Date(Month/Year) Multiple psychiatric hospitalization
[2024-09-01 14:38] VITALS: BP 99/50; PULSE 86
[2024-09-01 14:45] VITALS: BP 106/48; PULSE 86
[2024-09-01 14:59] LABS: Add Urine Microscopic? YES; Appearance Urine Cloudy (Clear); Glucose Urine UA Negative (Negative); Leukocyte Esterase Ur 1+ LEU/UL (Negative); Nitrate Urine Negative (Negative); Non Pathogenic Casts 0-2; Specific Grav Ur 1.013 (1.001-1.035)
[2024-09-01 15:00] VITALS: BP 99/58; PULSE 86; TEMP 36.6
[2024-09-01 15:22] VITALS: BMI 44.5
--- NOTE | 2024-09-01 15:23 | OBADM ---
This patient, Yue Burns, admitted to the OB room OB Post 116 for observation. Patient/family oriented to hospital policies and general routines including ID bracelet, bed and alarms, visiting hours, pain management, procedures, bathroom and other care routines, personal items, smoking policy, room service/diet, and visiting hours. Patient/Family are encouraged to report perceived risks to care and to ask questions if they do not understand what they are told or what they should do.
--- NOTE | 2024-09-30 21:15 | PM.OBTRLD ---
OB - Triage/Final Diagnosis Visit Information Comments/Additional reasons for admission: I have assessed the risk for this patient, Yue Burns, and determined that she would benefit from observation care. Evaluation Laboratory results: Laboratory Tests 09/01/24 14:47 Urine Color Yellow Urine Appearance Cloudy H Urine pH 7.5 Ur Specific [place] 1.013 Urine Protein Negative Urine Glucose (UA) Negative Urine Ketones Negative Ur Blood (Man) Negative Urine Nitrate Negative Urine Bilirubin Negative Urine Urobilinogen 0.2 Leukocyte Esterase Rfl 1+ H Urine RBC 0-2 Urine WBC 11-20 H Ur Squamous Epith Cells Many H Urine Bacteria 1+ H Urine Casts 0-2 Final Diagnosis (1) Vaginal pain: Code(s): R10.2 - Pelvic and perineal pain Status: Acute
== END 2024-09-01 16:42 | disposition home or self-care (01) ==
PROVIDERS: Admitting Provider Obstetrics & Gynecology; PCP Nurse Practitioner Family; Visit Provider Obstetrics & Gynecology
DX: O26.893 Other specified pregnancy related conditions, third trimester (principal); R10.2 Pelvic and perineal pain; Z3A.33 33 weeks gestation of pregnancy
CPT/HCPCS: 81001; G0378; G0379

== ENCOUNTER 2024-10-07 19:15 | Observation (INO) | payer OTHER, SELFPAY ==
[2024-10-07] VITALS (16 sets, daily range): BP systolic 115–126; BP diastolic 67–94; PULSE 77–118; O2SAT 95–99; BMI 45.8
--- NOTE | ~2024-10-07 | US_ITS ---
EXAM: US OB limited w BPP - 10/08/2024 7:23 CDT History: 24 years old Female with heart rate decelerations Comparison: None available. Technique Real time transabdominal obstetric sonographic imaging was performed. Findings A single live intrauterine gestation is identified. Lie: longitudinal Presentation: vertex heart rate: 131 beats per minute Placental position: Posterior SAMANTHA: 7.92 cm, which is between the 7.2 cm corresponding to 5 th and 22.6 cm corresponding to 95 th pe rcentiles. Biophysical profile: breathing movement: 2 Gross body movement: 2 tone: 2 Qualitative AFV: 2 Total BPP score: 8 of 8. Impression Total biophysical profile score is 8 out of 8. Reviewed, dictated and finalized at location A. Impression Total biophysical profile score is 8 out of 8.
--- OUTSIDE RECORDS SUMMARY | 2024-10-07 19:21 | XMS_ITS | Clinical Summary ---
Author Organization [facility] Address [address] [place] [address] Care Team Providers Care Teacher Tutor Name Role Phone Bianca Farr MD Unavailable [phone] Daniela Kamara [facility] Primary Care Provider + Allergies No known [...] Problem Noted Date Diagnosed Date Vaginal delivery ([facility]) 04/19/2021 Encounter for elective induction of labor ([facility]) 04/16/2021 Immunizations Immunization Administration Dates Next [...] Sex Assigned at Female 12/25/2018 3:42 PM DIE REAMER Legal Sex Female 7:39 PM CDT Gender Identity Female 12/25/2018 3:42 PM DIE REAMER Sexual Orientation Straight 12/25/2018 3: 42 PM DIE REAMER Last Filed Vital Signs Vital Sign Reading Time Taken Comments Blood Pressure 121/82 02/23/2024 12:19 PM DIE REAMER Pulse 80 02/23/2024 12:19 PM DIE REAMER Temperature 36.7 C (98 F) 02/23/2024 12:19 PM DIE REAMER Respiratory Rate 18 02/23/2024 12:19 PM DIE REAMER Oxygen Saturation 99% 02/23/2024 12:19 PM DIE REAMER Inhaled Oxygen Concentration - - Weight 109.3 kg (241 lb) 02/23/2024 12:19 PM DIE REAMER Height 167.6 cm (5' 6) 02/23/2024 12:19 PM DIE REAMER Body Mass Index 38.9 02/23/2024 12:19 PM DIE REAMER Plan of Treatment Health Maintenance Due Date Last Done Comments Cervical Cancer Screening Pap Smear (Age 21 to 29) Every 3 Years 2001 Cervical Cancer Screening 2001 Annual Physical 01/10/2004 Chlamydia Screening Females ages 16-24 2017 Meningococcal B Vaccine (1 of 2 - Standard) 2017 COVID-19 Vaccine (3 - season) 2023 07/19/2020, 06/21/2020 PHQ-2 (Physician [place]) 02/22/2024 DTaP, Tdap and Td Vaccines (8 [...] VE NON-REACTI VE 07/24/2019 9:17 PM CDT [facility] 07/24/2019 2:35 PM CDT [facility] Final Result [facility] [address] [place] [address], from Last 3 Months or Most Recently Relevant to Health Maintenance Insurance [facility] Advance Directives * Full Code (Latest Code Status on File) Date Activated Date Inactivated Comments 04/16/2021 10:44 AM 04/17/2021 9:11 AM Care Teams Teacher Tutor Relationship Specialty Start Date End Date Daniela Kamara, [employer] [address], [address] [place] [address] PCP - General Nurse Practitioner Family 12/13/22 Bianca Farr MD [address] [place] [address] Child and Adolescent Psychiatry 07/19/18
--- OUTSIDE RECORDS SUMMARY | 2024-10-07 19:21 | XMS_ITS | Encounter Summary ---
Author Organization [facility] Address [facility] [place] [address] Care Team Providers Care Community Support Specialist Name Role Phone Carolina Saenz [facility] Primary Care Provider + Bianca Farr MD Unavailable [phone] Daniela Kamara [facility] Primary Care Provider + Reason for Referral * Medication (Routine) - Closed Specialty Diagnoses / Procedures Referred By Contac t Referred To Contact INFUSION THERAPY / [facility] Infusion Therapy Diagnoses Gonorrhea Procedures CEFTRIAXONE SODIUM INJECTION rocephin IM [facility] [address] [place] [address] Phone: tel: [facility] [address] [place] [address] Phone: tel: Referral ID Status Reason Start Date Expiration Date V isits Requested Visits Authorized [id number] Closed Specialty Services 09/05/2020 10/06/2021 1 1 Encounter Details Date Type Department Care Team (Late st Contact Info) Description 09/05/2020 Therapy Plan [facility] [address] [place] [address] Filomena Spring MD [address] [place] [address] Social History Tobacco Use Types [...] Sex Assigned at Female 12/25/2018 3:42 PM MAJOR ACCOUNT REPRESENTATIVE Legal Sex Female 7:39 PM CDT Gender Identity Female 12/25/2018 3:42 PM MAJOR ACCOUNT REPRESENTATIVE Sexual Orientation Straight 12/25/2018 3: 42 PM MAJOR ACCOUNT REPRESENTATIVE COVID-19 Exposure Response Date Recorded In the [...] Rule Out 02/23/2024 02/23/2024 02/23/2024 3:58 PM MAJOR ACCOUNT REPRESENTATIVE Assessment Noted Time PHQ-9 Depression Total Score: 15 020 2:09 PM CDT documented as of this encounter Care Teams Community Support Specialist Relationship Specialty Start Date End Date Carolina Saenz FNP-BC PCP - General Nurse Practitioner Family 07/19/18 Daniela Kamara, [facility] [address], [address] [place] [phone] PCP - General Nurse Practitioner Family 12/13/22 Bianca Farr MD [address] [place] [address] Child and Adolescent Psychiatry 07/19/18 documented as of this encounter
--- OUTSIDE RECORDS SUMMARY | 2024-10-07 19:21 | XMS_ITS | Clinical Summary ---
Author Organization [facility] Address [address] [place] [address] Phone Care Team Providers Care Staff Interpreter Name Role Phone Kenia Monzon MD Primary Care Provider + Allergies No known active allergies Family History Relation Name Status Comments Brother Alive Father Alive Mother Alive Social History Tobacco Use Types Packs/Day Years Used Date Smoking Tobacco: Never Smokeless Tobacco: Never Alcohol Use Standard Drinks/Week Comments No 0 (1 standard drink = 0.6 oz pur e alcohol) Comments Unknown Sex and Gender Information Value Date Recorded Sex Assigned at Not on file Legal Sex Female 2:49 PM DIRECTOR BUSINESS SYSTEMS Gender Identity Not on file Sexual Orientation Not on file Last Filed Vital Signs Vital Sign Reading Time Taken Comments Blood Pressure 122/79 01/27/2018 2:51 PM DIRECTOR BUSINESS SYSTEMS Pulse - - Temperature 36.4 C (97.5 F) 01/27/2018 2:51 PM DIRECTOR BUSINESS SYSTEMS Respiratory Rate 16 01/27/2018 2:51 PM DIRECTOR BUSINESS SYSTEMS Oxygen Saturation 99% 01/27/2018 2:51 PM DIRECTOR BUSINESS SYSTEMS Inhaled Oxygen Concentration - - Weight 129.3 kg (285 lb) 01/27/2018 2:58 PM DIRECTOR BUSINESS SYSTEMS Height 160 cm (5' 3) 01/27/2018 2:58 PM DIRECTOR BUSINESS SYSTEMS Body Mass Index 50.49 01/27/2018 2:58 PM DIRECTOR BUSINESS SYSTEMS Plan of Treatment Health Maintenance Due Date Last Done Comments CHLAMYDIA SCREENING (ANNUAL) 11-24 YEARS 01/10/2012 HPV VACCINES (1 - 3-dose series) 01/10/2016 DTAP/TDAP/TD VACCINES (1 - Tdap) 01/10/2020 HEPATITIS B VACCINES (1 of 3 - 19+ 3-dose series) 12/22 CERVICAL CANCER SCREENING 2022 HPV/Cotest (21-29) 2022 PAP SMEAR 2022 INFLUENZA VACCINE (#1) 2024 Insurance [employer] Care Teams Staff Interpreter Relationship Specialty Start Date End Date Kenia Monzon MD [address] [facility] [place] [address] PCP - General Pediatrics 01/27/18
--- OUTSIDE RECORDS SUMMARY | 2024-10-07 19:21 | XMS_ITS | Patient Health Record ---
Author Organization [facility] Address [address] [place] [address] Care Team Providers Care Heliarc Welder Name Role Phone Zack Chew Primary Care Provider GivensDenisebrodie Soria [phone] Allergies No Known Allergies Results Component Value Reference Range Notes Hemoglobin A1c* Reviewed date:01/06/2024 03:52:48 PM Interpretation: Performing Lab:[facility], [address] [facility], Phone - [phone], Director - Anibal Notes/Report: Hemoglobin A1c 5.3 4.8-5.6 % . Prediabetes: 5.7 - 6.4 Diabetes: >6.4 Glycemic control for adults with diabetes: <7.0 Vitamin B12* Reviewed date:01/06/2024 03:52:43 PM Interpretation: Performing Lab:[facility], [address], [place], Phone - [phone], Director - Anibal Notes/Report: Vitamin B12 381 495-9417 pg/mL CBC With Differential/Platel et* Reviewed date:01/06/2024 02:32:04 PM Interpretation: Performing Lab:[facility], [address], [place], Phone - [phone], Director - Anibal Notes/Report: WBC 7.8 3.4-10.8 [...] 25-Hydroxy* Reviewed date:01/06/2024 03:52:35 PM Interpretation: Performing Lab:[facility] [place] [address] [facility], Phone - [phone], Director - [facility] Notes/Report: Vitamin D, 25-Hydroxy 14.3 30.0-100.0 ng/mL Vitamin D deficiency has been defined by the [place] of Medicine and an Endocrine Society practice guideline as a level of serum 25-OH vitamin D less than 20 ng/mL (1,2). The Endocrine Society went on to further define vitamin D insufficiency as a level between 21 and 29 ng/mL (2). 1. IOM ([place] of Medicine). 2010. Dietary reference intakes for calcium and D. [place]: The National Academies Press. 2. Bia MF, Jose NC, Bienvenido CAMP, et al. Evaluation, treatment, and prevention of vitamin D deficiency: an Endocrine Society clinical practice guideline. JCEM. 2010; 96(7):1911-30. TSH+Free T4* Reviewed date:01/06/2024 03:53:00 PM Interpretation: Performing Lab:[facility] [place], [address] [facility], Phone - [phone], Director - PhDRicchiuti Notes/Report: TSH 1.840 0.450-4.500 uIU/mL T4,Free(Direct) 1.11 0.82-1.77 ng/dL Lipid Panel* Reviewed date:01/06/2024 03:52:52 PM Interpretation: Performing Lab:[facility] [place], [address] [facility], Phone - [phone], Director - [facility] Notes/Report: Cholesterol, Total 182 100-199 mg/dL Triglycerides 110 0-149 mg/dL HDL Cholesterol 65 >39 mg/dL VLDL Cholesterol Lamont 20 5-40 mg/dL LDL Chol Calc ([facility]) 97 0-99 mg/dL CMP 14 Comprehensive Metabol ic Panel* Reviewed date:01/06/2024 03:52:55 PM Interpretation: Performing Lab:[facility] [place], [address] [facility], Phone - [phone], Director - [facility] Notes/Report: Glucose 89 70-99 mg/dL [...] Bipolar 2 disorder ( F31.81) Referral Organization [facility] Referring Provider First Name Luz Elena Referring Provider Last Name Tosha Referring Provider Speciality Psychiatry Referred Provider Specialty [facility] Clinical Notes Angelique Levi 01/05/2024 01:39:49 PM > Based off a telephone encounter the client is getting labs on 01-05-24. After labs Bhumi Gievns will look at adjustments. Referral Priority Routine Reason Higher PHQ9. Had bee n hospitalized for SI. Meds changed today. Needs/wants to set up therapy. Having to give up parental rights of [place] to [place] next [place]. Diagnosis 1 Bipolar 2 disorder ( F31.81) Referral Organization [facility] Referring Provider First Name Luz Elena Referring Provider Last Name Tosha Referring Provider Speciality Psychiatry Referred Provider Specialty [facility] Clinical Notes Angelique Levi 03/09/2024 08:30:03 AM [...] 03-13-24, Luba Patel 04/03/2024 02:56:28 PM > [place] [facility] monk Kristina L 04/06/2024 09:03:23 AM [...] Duration: 30 days Active Ergocalciferol 1.25 MG (00890 UT) 1 capsule Orally once a week; [...] Risk Notes Problem Chronic alcoholism in remission (605762813) Alcohol dependence, in remission (F10.21) Active confirmed Problem Stimulant dependence (602168191) Other stimulant dependence, 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) Active confirmed Problem Tobacco user (446380254) Nicotine dependence, unspecified, uncomplicated (F17.200) Active confirmed Problem Post-traumatic stress disorder (22227106) Post-traumatic stress disorder, unspecified (F43.10) 2 Active confirmed Problem Autism (59234680) Autism (F84.0) 2 Active confirmed Problem Bipolar 2 disorder (18854580) Bipolar 2 disorder (F31.81) 2 Active confirmed Problem Chronic vaginitis (71411967) Chronic vaginitis (N76.1) Active confirmed Problem Cannabis dependence (54663704) Cannabis use disorder, severe, dependence (F12.20) Active confirmed Encounters Encounter Location Date Provider Diagnosis [address] [place] [address] 01/05/2024 Luz Elena Givens Bipolar 2 disorder F31.81 [address] [place] [address] 01/03/2024 Luz Elena Givens Bipolar 2 disorder F31.81 and Autism F84.[address] [place] [address] 01/13/2024 Luz Elena Givens Bipolar 2 disorder F31.81 ; Autism F84.0 and Post-traumatic stress disorder, unspecified F43.10 [address] [place] [address] 03/08/2024 Luz Elena Givens Bipolar 2 disorder F31.81 ; Autism F84.0 and Post-traumatic stress disorder, unspecified F43.10 [address] [address] [place] [address] 05/24/2024 Luz Elena Givens Autism F84.0 ; Bipolar 2 disorder F31.81 and Post-traumatic stress disorder, unspecified F43.10 [address] [place] [address] 07/26/2024 Luz Elena Givens Bipolar 2 disorder F31.81 ; Autism F84.0 and Post-traumatic stress disorder, unspecified F43.10 [address] [address] [place] [address] 12/26/2023 Luz Elena Givens Bipolar 2 disorder F31.[address] [place] [address] 01/04/2024 Luz lEena Givens [facility] [address] [place] [address] 01/05/2024 Zack Chew Bipolar 2 disorder F31.[address] [place] [address] 01/06/2024 Zack Chew [facility] [address] [facility] [address] 01/17/2024 Luz Elena Powers [facility] [address] [place] [address] 01/17/2024 Luz Elena Givens Bipolar 2 disorder F31.81 [facility] [address] [facility] [address] 02/23/2024 Luz Elena Powers [address] [place] [address] 05/10/2024 Luz Elena Powers Bipolar 2 disorder F31.[address] [place] [address] 07/20/2024 Luz Elena Givens Autism F84.0 Assessments Encounter Date Diagnosis (ICD Code) Assessment Notes Treatment Notes Treatment Clinical Notes Section Notes 07/26/2024 Bipolar 2 disorder (ICD-10 - F31.81) Continue current medications. Continue services as scheduled. Labs completed recently. May self-administer medications or be administered own oral medications per [employer] protocols. Provided informed consent with understanding of side effects, adverse effects, risks and benefits as well as alternative treatments as previously discussed and with the above recommended medications & other aspects of the treatment program. Agrees to return sooner if symptoms worsen or suicidal or homicidal ideations occur. 07/20/2024 Autism (ICD-10 - F84.0) 05/24/2024 Autism (ICD-10 - F84.0) Continue current medications. Follow up with OB. Continue services as scheduled. Labs completed recently. May self-administer medications or be administered own oral medications per [employer] protocols. Provided informed consent with understanding of side effects, adverse effects, risks and benefits as well as alternative treatments as previously discussed and with the above recommended medications & other aspects of the treatment program. Agrees to return sooner if symptoms worsen or suicidal or homicidal ideations occur. 05/10/2024 Bipolar 2 disorder (ICD-10 - F31.81) 03/08/2024 Bipolar 2 disorder (ICD-10 - F31.81) Increase Seroquel to help with Mood instability and sleep. Continue services as scheduled- set up therapy. Labs completed recently. May self-administer medications or be administered own oral medications per [place] protocols. Provided informed consent with understanding of side effects, adverse effects, risks and benefits as well as alternative treatments as previously discussed and with the above recommended medications & other aspects of the treatment program. Agrees to return sooner if symptoms worsen or suicidal or homicidal ideations occur. 01/17/2024 Bipolar 2 disorder (ICD-10 - F31.81) 01/13/2024 Bipolar 2 disorder (ICD-10 - F31.81) Resume previous dose of Seroquel. Continue therapy. Contact Crisis line, hospital or On license of [facility], if symptoms worsen or having suicidal thoughts. May self-administer medications or be administered own oral medications per [place] protocols. Provided informed consent with understanding of side effects, adverse effects, risks and benefits as well as alternative treatments as previously discussed and with the above recommended medications & other aspects of the treatment program. Agrees to return sooner if symptoms worsen or suicidal or homicidal ideations occur. 01/05/2024 Bipolar 2 disorder (ICD-10 - F31.81) 01/05/2024 Bipolar 2 disorder (ICD-10 - F31.81) 01/03/2024 Bipolar 2 disorder (ICD-10 - F31.81) CancelRx Response got Denied on 2024-01-05 16:44:03 for 'ARIPiprazole 5 MG Tablet'Pharmacy Notes: Unable to Cancel Rx. Please contact Pharmacy 12/26/2023 Bipolar 2 disorder (ICD-10 - F31.81) 03/08/2024 Autism (ICD-10 - F84.0) 01/13/2024 Autism (ICD-10 - F84.0) 01/03/2024 Autism (ICD-10 - F84.0) 05/24/2024 Bipolar 2 disorder (ICD-10 - F31.81) 07/26/2024 Autism (ICD-10 - F84.0) 07/26/2024 Post-traumatic stress disorder, unspecified (ICD-10 - F43.10) 05/24/2024 Post-traumatic stress disorder, unspecified (ICD-10 - F43.10) 01/13/2024 Post-traumatic stress disorder, unspecified (ICD-10 - F43.10) 03/08/2024 Post-traumatic stress disorder, unspecified (ICD-10 - F43.10) 01/03/2024 Other She has already restarted medication. Transition to Abilify instead of Seroquel. Labs ordered. Continue services as scheduled. Refferred to Crisis with a warm hand off. May self-administer medications or be administered own oral medications per [place] protocols. Provided informed consent with understanding of [...] Screen *HIV 1, 2 Ab, p24 Ag ([id number]) 04/16/2020 Urinalysis, Routine 04/16/2020 RPR* 04/16/2020 Chlamydia trachomatis,Neisse elayne gonorrhoeae, and Trichomonas vaginalis, EDMOND ([id number]) 04/16/2020 Insurance Providers Payer Name Payer Address Payer Phone Subscriber Number Group Number Insured Name Patient Relationship to Insured Coverage Start Date Coverage End Date [employer] [address] [place] [address] [id number] Yue Burns Self - patient is the insured 0 [employer] Att[employer] Claims Department [address] [facility] [place] [address] [id number] Yue Burns Self - patient is the insured 0 1 [employer] [address] [place] [phone] [id number] Grant[employer] Self - patient is the insured 2 2 [employer] [address] [place] [phone] [id number] Yue Burns Self - patient is the insured 2 Medical (General) History Medical History History ICD Code Substance use disorder Autism spectrum MDD JAMES Split personality disorder Bipolar I disorder Surgical History Surgery Date(Month/Year) TM tubes x2 Removal of hemangioma Tonsillectomy Adenoidectomy Hospitalization History Reason Date(Month/Year) Multiple psychiatric hospitalization
--- OUTSIDE RECORDS SUMMARY | 2024-10-07 19:21 | XMS_ITS | Encounter Summary ---
Author Organization [facility] Address [facility]ly [facility] [place] [address] Care Team Providers Care Papier Mache' Molder Name Role Phone Letty Carolina [facility] Primary Care Provider + Bianca Farr MD Unavailable [phone] Daniela Kamara [facility] Primary Care Provider + Encounter Details Date Type Department Care Team (Late st Contact Info) Description 09/05/2020 Hospital Orders Only [facility] [address] [place] [address] Filomena Spring MD [address] [place] [address] Social History Tobacco Use Types [...] Sex Assigned at Female 12/25/2018 3:42 PM TICKET MACHINE OPERATOR Legal Sex Female 7:39 PM CDT Gender Identity Female 12/25/2018 3:42 PM TICKET MACHINE OPERATOR Sexual Orientation Straight 12/25/2018 3: 42 PM TICKET MACHINE OPERATOR COVID-19 Exposure Response Date Recorded In the [...] Rule Out 02/23/2024 02/23/2024 02/23/2024 3:58 PM TICKET MACHINE OPERATOR Assessment Noted Time PHQ-9 Depression Total Score: 15 020 2:09 PM CDT documented as of this encounter Care Teams Papier Mache' Molder Relationship Specialty Start Date End Date Carolina Saenz [facility] PCP - General Nurse Practitioner Family 07/19/18 Daniela Kamara, [facility]- [address], [address] [place] [address] PCP - General Nurse Practitioner Family 12/13/22 Bianca Farr MD [address] [place] [address] Child and Adolescent Psychiatry 07/19/18 documented as of this encounter
--- OUTSIDE RECORDS SUMMARY | 2024-10-07 19:21 | XMS_ITS | Clinical Summary ---
Author Organization [facility] Address [address] [place] [address] Phone Care Team Providers Care Environmental Health Officer Name Role Phone Provider, None Primary Care [...] of Treatment Not on file Insurance [place]ICAID [place] Care Teams Environmental Health Officer Relationship Specialty Start Date End Date Provider, Albin MCKEON PCP - General 05/04/20
[2024-10-07] MEDS: ONDANSETRON HCL ODT 4 MG TABLET PO (20:20)
[2024-10-08] MEDS: FAMOTIDINE 20 MG TABLET PO (00:10)
[2024-10-08 00:59] VITALS: BP 117/78; PULSE 145
[2024-10-08] MEDS: ONDANSETRON INJ 4 MG/2 ML VIAL IV PUSH ×2 (02:00→08:48)
[2024-10-08 03:29] VITALS: BP 138/77; PULSE 101
--- NOTE | 2024-10-08 09:50 | PC.NURSE ---
IV removed prior to dc
--- NOTE | 2024-10-09 10:42 | PM.OBTRLD ---
OB - Triage/Final Diagnosis Visit Information Comments/Additional reasons for admission: I have assessed the risk for this patient, Yue Burns, and determined that she would benefit from observation care. Final Diagnosis (1) Irregular contractions: Code(s): O47.9 - False labor, unspecified Status: Acute
== END 2024-10-08 09:56 | disposition home or self-care (01) ==
PROVIDERS: Admitting Provider Obstetrics & Gynecology; PCP Nurse Practitioner Family; Visit Provider Obstetrics & Gynecology
DX: O47.1 False labor at or after 37 completed weeks of gestation (principal); Z3A.38 38 weeks gestation of pregnancy
CPT/HCPCS: 76815; 76819; 96374; 96376; A9270; G0378; G0379; J2405

== ENCOUNTER 2024-10-10 05:57 | Inpatient (IN) | payer OTHER, SELFPAY ==
[2024-10-10] VITALS (214 sets, daily range): BP systolic 100–148; BP diastolic 52–91; PULSE 53–111; RESP 18; TEMP 36.2–37.1; O2SAT 81–100; BMI 46.0
--- OUTSIDE RECORDS SUMMARY | 2024-10-10 06:03 | XMS_ITS | Clinical Summary ---
Author Organization [facility] Address [address] [place] [address] Care Team Providers Care Vice Provost Name Role Phone Bianca Farr MD Unavailable [phone] Daniela Kamara [facility] Primary Care Provider + Allergies No known [...] Date Vaginal delivery ([facility]) 04/19/2021 Encounter for elective induction of labor [...] Sex Assigned at Female 12/25/2018 3:42 PM DATA PROCESSING MANAGER Legal Sex Female 7:39 PM CDT Gender Identity Female 12/25/2018 3:42 PM DATA PROCESSING MANAGER Sexual Orientation Straight 12/25/2018 3: 42 PM DATA PROCESSING MANAGER Last Filed Vital Signs Vital Sign Reading Time Taken Comments Blood Pressure 121/82 02/23/2024 12:19 PM DATA PROCESSING MANAGER Pulse 80 02/23/2024 12:19 PM DATA PROCESSING MANAGER Temperature 36.7 C (98 F) 02/23/2024 12:19 PM DATA PROCESSING MANAGER Respiratory Rate 18 02/23/2024 12:19 PM DATA PROCESSING MANAGER Oxygen Saturation 99% 02/23/2024 12:19 PM DATA PROCESSING MANAGER Inhaled Oxygen Concentration - - Weight 109.3 kg (241 lb) 02/23/2024 12:19 PM DATA PROCESSING MANAGER Height 167.6 cm (5' 6) 02/23/2024 12:19 PM DATA PROCESSING MANAGER Body Mass Index 38.9 02/23/2024 12:19 PM DATA PROCESSING MANAGER Plan of Treatment Health Maintenance Due Date Last Done Comments Cervical Cancer Screening Pap Smear (Age 21 to 29) Every 3 Years 2001 Cervical Cancer Screening 2001 Annual Physical 01/10/2004 Chlamydia Screening Females ages 16-24 2017 Meningococcal B Vaccine (1 of 2 - Standard) 2017 COVID-19 Vaccine (3 - season) 2023 07/19/2020, 06/21/2020 PHQ-2 (Physician [place]) 02/22/2024 DTaP, Tdap and Td Vaccines (8 [...] VE NON-REACTI VE 07/24/2019 9:17 PM CDT [facility] 07/24/2019 2:35 PM CDT [facility] Final Result [facility] [address] [place] [address], from Last 3 Months or Most Recently Relevant to Health Maintenance Insurance [employer] [facility] Advance Directives * Full Code (Latest Code Status on File) Date Activated Date Inactivated Comments 04/16/2021 10:44 AM 04/17/2021 9:11 AM Care Teams Vice Provost Relationship Specialty Start Date End Date Daniela Kamara, WARP KNITTING MACHINE OPERATOR-BC [address], [address] [place] [address] PCP - General Nurse Practitioner Family 12/13/22 Bianca Farr MD [address] [place] [address] Child and Adolescent Psychiatry 07/19/18
--- OUTSIDE RECORDS SUMMARY | 2024-10-10 06:03 | XMS_ITS | Encounter Summary ---
Author Organization [facility] Address [facility] [place] [address] Care Team Providers Care Office Equipment Mechanic Name Role Phone Carolina Saenz [facility] Primary Care Provider + Bianca Farr MD Unavailable [phone] Daniela Kamara [facility] Primary Care Provider + Reason for Referral * Medication (Routine) - Closed Specialty Diagnoses / Procedures Referred By Contac t Referred To Contact INFUSION THERAPY / [facility] Infusion Therapy Diagnoses Gonorrhea Procedures CEFTRIAXONE SODIUM INJECTION rocephin IM [facility] [address] [place] [address] Phone: tel: [facility] [address] [place] [address] Phone: tel: Referral ID Status Reason Start Date Expiration Date V isits Requested Visits Authorized [id number] Closed Specialty Services 09/05/2020 10/06/2021 1 1 Encounter Details Date Type Department Care Team (Late st Contact Info) Description 09/05/2020 Therapy Plan [facility] [address] [place] [address] Filomena Spring MD [address] [place] [address] Social History Tobacco Use Types [...] Sex Assigned at Female 12/25/2018 3:42 PM FINANCIAL SERVICES INTERN Legal Sex Female 7:39 PM CDT Gender Identity Female 12/25/2018 3:42 PM FINANCIAL SERVICES INTERN Sexual Orientation Straight 12/25/2018 3: 42 PM FINANCIAL SERVICES INTERN COVID-19 Exposure Response Date Recorded In the [...] Rule Out 02/23/2024 02/23/2024 02/23/2024 3:58 PM FINANCIAL SERVICES INTERN Assessment Noted Time PHQ-9 Depression Total Score: 15 020 2:09 PM CDT documented as of this encounter Care Teams Office Equipment Mechanic Relationship Specialty Start Date End Date Carolina Saenz FNP-BC PCP - General Nurse Practitioner Family 07/19/18 Daniela Kamara, [facility] [address], [address] [place] [phone] PCP - General Nurse Practitioner Family 12/13/22 Bianca Farr MD [address] [place] [address] Child and Adolescent Psychiatry 07/19/18 documented as of this encounter
--- OUTSIDE RECORDS SUMMARY | 2024-10-10 06:03 | XMS_ITS | Patient Health Record ---
Author Organization [facility] Address [address] [place] [address] Care Team Providers Care Melangeur Operator Name Role Phone Zack Chew Primary Care Provider GivensDenisea Unavailable [phone] Allergies No Known Allergies Results Component Value Reference Range Notes Hemoglobin A1c* Reviewed date:01/10/2024 09:23:29 AM Interpretation: Performing Lab: Notes/Report: Vitamin B12* Reviewed date:01/10/2024 09:23:16 AM Interpretation: Performing Lab: Notes/Report: CBC With Differential/Platel et* Reviewed date:01/10/2024 09:23:47 AM Interpretation: Performing Lab: Notes/Report: Vitamin D, 25-Hydroxy* Reviewed date:01/10/2024 09:23:13 AM Interpretation: Performing Lab: Notes/Report: TSH+Free T4* Reviewed date:01/10/2024 09:23:20 AM Interpretation: Performing Lab: Notes/Report: Lipid Panel* Reviewed date:01/10/2024 09:23:24 AM Interpretation: Performing Lab: Notes/Report: CMP 14 Comprehensive Metabol ic Panel* Reviewed date:01/10/2024 09:23:35 AM Interpretation: Performing Lab: Notes/Report: Hemoglobin A1c* Reviewed date:01/06/2024 03:52:48 PM Interpretation: Performing Lab:[facility], [address] [facility], Phone - [phone], Director - PhDRicalcides Notes/Report: Hemoglobin A1c 5.3 4.8-5.6 % . Prediabetes: 5.7 - 6.4 Diabetes: >6.4 Glycemic control for adults with diabetes: <7.0 Vitamin B12* Reviewed date:01/06/2024 03:52:43 PM Interpretation: Performing Lab:[address], Phone - [phone], [facility] Notes/Report: Vitamin B12 993 669-2264 pg/mL CBC With Differential/Platel et* Reviewed date:01/06/2024 02:32:04 PM Interpretation: [facility]forming [facility], [address] [place] [address], Phone - [phone], Director - [facility] Notes/Report: WBC 7.8 3.4-10.8 x10E3/uL RBC 4.07 [...] 25-Hydroxy* Reviewed date:01/06/2024 03:52:35 PM Interpretation: Performing Lab:[facility], [address] [place] [address], Phone - [phone], [facility] Notes/Report: Vitamin D, 25-Hydroxy 14.3 30.0-100.0 ng/mL Vitamin D deficiency has been defined by the [place]inn of Medicine and an Endocrine Society practice guideline as a level of serum 25-OH vitamin D less than 20 ng/mL (1,2). The Endocrine Society went on to further define vitamin D insufficiency as a level between 21 and 29 ng/mL (2). 1. IOM ([place]inn of Medicine). 2010. Dietary reference intakes for calcium and D. [place]: The National Academies Press. 2. Bia MF, Jose BARRIOS, Bienvenido CAMP, et al. Evaluation, treatment, and prevention of vitamin D deficiency: an Endocrine Society clinical practice guideline. JCEM. 2010; 96():1911-30. TSH+Free T4* Reviewed date:01/06/2024 03:53:00 PM Interpretation: Performing Lab:[facility], Phone - [phone], Director - [facility] Notes/Report: TSH 1.840 0.450-4.500 uIU/mL T4,Free(Direct) 1.11 0.82-1.77 ng/dL Lipid Panel* Reviewed date:01/06/2024 03:52:52 PM Interpretation: Performing Lab:[facility] [place] [address], Phone - [phone], Director - PhDMal[facility] Hospitalmarie Notes/Report: Cholesterol, Total 182 100-199 mg/dL Triglycerides 110 0-149 mg/dL HDL Cholesterol 65 >39 mg/dL VLDL Cholesterol [place] 20 5-40 mg/dL LDL Chol Calc ([facility]) 97 0-99 mg/dL CMP 14 Comprehensive Metabol ic Panel* Reviewed date:01/06/2024 03:52:55 PM Interpretation: Performing Lab:[facility] [place], [address] [facility], Phone - [phone], Director - [facility] Notes/Report: Glucose 89 70-99 mg/dL BUN 10 [...] 0-40 IU/L ALT (SGPT) 10 0-32 IU/L Reason For Referral Reason Warm hand off form e mailed for Suicide attempt on 12/24. No current SI. Diagnosis 1 Bipolar 2 disorder ( F31.81) Referral Organization [facility] Referring Provider First Name Luz Elena Referring Provider Last Name Tosha Referring Provider Speciality Psychiatry Referred Provider Specialty [facility] Clinical Notes Angelique Levi 01/05/2024 01:39:49 PM [...] Bipolar 2 disorder ( F31.81) Referral Organization [facility] Referring Provider First Name Luz Elena Referring Provider Last Name Tosha Referring Provider [facility] Psychiatry Referred Provider Specialty [facility] Clinical Notes Angelique Levi 03/09/2024 08:30:03 AM [...] 03-13-24, Luba Patel 04/03/2024 02:56:28 PM > [place] monk Kristina L 04/06/2024 09:03:23 AM [...] Duration: 30 days Active Ergocalciferol 1.25 MG (17012 UT) 1 capsule Orally once a week; [...] Risk Notes Problem Chronic alcoholism in remission (918951879) Alcohol dependence, in remission (F10.21) Active confirmed Problem Stimulant dependence (811559139) Other stimulant dependence, 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) Active confirmed Problem Tobacco user (112224402) Nicotine dependence, unspecified, uncomplicated (F17.200) Active confirmed Problem Post-traumatic stress disorder (18919319) Post-traumatic stress disorder, unspecified (F43.10) 2 Active confirmed Problem Autism (08181876) Autism (F84.0) 2 Active confirmed Problem Bipolar 2 disorder (71066345) Bipolar 2 disorder (F31.81) 2 Active confirmed Problem Chronic vaginitis (95763792) Chronic vaginitis (N76.1) Active confirmed Problem Cannabis dependence (70408983) Cannabis use disorder, severe, dependence (F12.20) Active confirmed Encounters Encounter Location Date Provider Diagnosis [address] [place] [address] 01/05/2024 Luz Elena Givens Bipolar 2 disorder F31.81 [place] [place] [address] 01/03/2024 Luz Elena Givens Bipolar 2 disorder F31.81 and Autism F84.[address] [place] [address] 01/13/2024 Luz Elena Givens Bipolar 2 disorder F31.81 ; Autism F84.0 and Post-traumatic stress disorder, unspecified F43.10 [address] [place] [address] 03/08/2024 Luz Elena Givens Bipolar 2 disorder F31.81 ; Autism F84.0 and Post-traumatic stress disorder, unspecified F43.10 [address] [address] [place] [address] 05/24/2024 Luz Elena Givens Autism F84.0 ; Bipolar 2 disorder F31.81 and Post-traumatic stress disorder, unspecified F43.10 [address] [address] [place] [address] 07/26/2024 Luz Elena Givens Bipolar 2 disorder F31.81 ; Autism F84.0 and Post-traumatic stress disorder, unspecified F43.10 [address] [address] [place] [address] 12/26/2023 Luz Elena Givens Bipolar 2 disorder F31.[address] [place] [address] 01/04/2024 Luz Elena Givens [facility] [address] [place] [address] 01/05/2024 Zack Chew Bipolar 2 disorder F31.[address] [place] [address] 01/06/2024 Zack Chew [facility] [address] [place] [address] 01/17/2024 Luz Elena Tosha [facility] [address] [place] [address] 01/17/2024 Luz Elena Powers Bipolar 2 disorder F31.81 [place] [address] 02/23/2024 Luz Elena Tosha [address] [place] [address] 05/10/2024 Luz Elena Tosha Bipolar 2 disorder F31.[address] [place] [address] 07/20/2024 Luz Elena Givens Autism F84.0 Assessments Encounter Date Diagnosis (ICD Code) Assessment Notes Treatment Notes Treatment Clinical Notes Section Notes 07/26/2024 Bipolar 2 disorder (ICD-10 - F31.81) Continue current medications. Continue services as scheduled. Labs completed recently. May self-administer medications or be administered own oral medications per [facility] protocols. Provided informed consent with understanding of side effects, adverse effects, risks and benefits as well as alternative treatments as previously discussed and with the above recommended medications & other aspects of the treatment program. Agrees to return sooner if symptoms worsen or suicidal or homicidal ideations occur. 07/20/2024 Autism (ICD-10 - F84.0) 01/17/2024 Bipolar 2 disorder (ICD-10 - F31.81) 01/05/2024 [...] or be administered own oral medications per [facility] protocols. Provided informed consent with understanding of side effects, adverse effects, risks and benefits as well as alternative treatments as previously discussed and with the above recommended medications & other aspects of the treatment program. Agrees to return sooner if symptoms worsen or suicidal or homicidal ideations occur. 05/24/2024 Autism (ICD-10 - F84.0) Continue current medications. Follow up with OB. Continue services as scheduled. Labs completed recently. May self-administer medications or be administered own oral medications per [facility] protocols. Provided informed consent with understanding of [...] or be administered own oral medications per [facility] protocols. Provided informed consent with understanding of side effects, adverse effects, risks and benefits as well as alternative treatments as previously discussed and with the above recommended medications & other aspects of the treatment program. Agrees to return sooner if symptoms worsen or suicidal or homicidal ideations occur. 01/13/2024 Autism (ICD-10 - F84.0) 03/08/2024 Autism (ICD-10 - F84.0) 05/24/2024 Bipolar 2 disorder (ICD-10 - F31.81) 07/26/2024 Autism (ICD-10 - F84.0) 01/03/2024 Autism (ICD-10 - F84.0) 07/26/2024 Post-traumatic stress [...] or be administered own oral medications per [facility] protocols. Provided informed consent with understanding of [...] Screen *HIV 1, 2 Ab, p24 Ag (841326) 04/16/2020 Urinalysis, Routine 04/16/2020 RPR* 04/16/2020 Chlamydia trachomatis,Neisse elayne gonorrhoeae, and Trichomonas vaginalis, EDMOND (435465) 04/16/2020 Insurance Providers Payer Name Payer Address Payer Phone Subscriber Number Group Number Insured Name Patient Relationship to Insured Coverage Start Date Coverage End Date [employer] [address] [place] [address] [id number] Yue Burns Self - patient is the insured 0 [employer] Claims Department [address] [facility] [place] [address] [id number] Yue Burns Self - patient is the insured 0 1 [employer] [address] [place] [phone] [id number] [employer] Self - patient is the insured 2 2 [employer] [address] [place] [phone] [id number] Yue Burns Self - patient is the insured 2 Medical (General) History Medical History History ICD Code Substance use disorder Autism spectrum MDD JAMES Split personality disorder Bipolar I disorder Surgical History Surgery Date(Month/Year) TM tubes x2 Removal of hemangioma Tonsillectomy Adenoidectomy Hospitalization History Reason Date(Month/Year) Multiple psychiatric hospitalization
--- OUTSIDE RECORDS SUMMARY | 2024-10-10 06:03 | XMS_ITS | Clinical Summary ---
Author Organization [facility] Address [address] [place] [phone] Phone Care Team Providers Care Palliative Senior Np Name Role Phone Kenia Monzon MD Primary [...] on file Legal Sex Female 2:49 PM SENIOR ENERGY TRADER Gender Identity Not on file Sexual Orientation Not on file Last Filed Vital Signs Vital Sign Reading Time Taken Comments Blood Pressure 122/79 01/27/2018 2:51 PM SENIOR ENERGY TRADER Pulse - - Temperature 36.4 C (97.5 F) 01/27/2018 2:51 PM SENIOR ENERGY TRADER Respiratory Rate 16 01/27/2018 2:51 PM SENIOR ENERGY TRADER Oxygen Saturation 99% 01/27/2018 2:51 PM SENIOR ENERGY TRADER Inhaled Oxygen Concentration - - Weight 129.3 kg (285 lb) 01/27/2018 2:58 PM SENIOR ENERGY TRADER Height 160 cm (5' 3) 01/27/2018 2:58 PM SENIOR ENERGY TRADER Body Mass Index 50.49 01/27/2018 2:58 PM SENIOR ENERGY TRADER Plan of Treatment Health Maintenance Due Date Last Done Comments CHLAMYDIA SCREENING (ANNUAL) 11-24 YEARS 01/10/2012 HPV VACCINES (1 - 3-dose series) 01/10/2016 DTAP/TDAP/TD VACCINES (1 - Tdap) 01/10/2020 HEPATITIS B VACCINES (1 of 3 - 19+ 3-dose series) 12/22 CERVICAL CANCER SCREENING 2022 HPV/Cotest (21-29) 2022 PAP SMEAR 2022 INFLUENZA VACCINE (#1) 2024 Insurance [employer] [place] Care Teams Palliative Senior Np Relationship Specialty Start Date End Date Kenia Monzon MD [address] [place] [address] PCP - General Pediatrics 01/27/18
--- OUTSIDE RECORDS SUMMARY | 2024-10-10 06:03 | XMS_ITS | Encounter Summary ---
Author Organization [facility] Address [facility] [place] [address] Care Team Providers Care Automotive Collision Estimator Name Role Phone Letty Carolina [facility] Primary Care Provider + Bianca Farr MD Unavailable [phone] Daniela Kamara [facility] Primary Care Provider + Encounter Details Date Type Department Care Team (Late st Contact Info) Description 09/05/2020 Hospital Orders Only [facility] [address] [place] [address] Filomena Spring MD [address] [place] [address] Social History Tobacco Use Types [...] Sex Assigned at Female 12/25/2018 3:42 PM MANAGER SERVICES Legal Sex Female 7:39 PM CDT Gender Identity Female 12/25/2018 3:42 PM MANAGER SERVICES Sexual Orientation Straight 12/25/2018 3: 42 PM MANAGER SERVICES COVID-19 Exposure Response Date Recorded In the [...] Rule Out 02/23/2024 02/23/2024 02/23/2024 3:58 PM MANAGER SERVICES Assessment Noted Time PHQ-9 Depression Total Score: 15 020 2:09 PM CDT documented as of this encounter Care Teams Automotive Collision Estimator Relationship Specialty Start Date End Date Carolina Saenz [facility] PCP - General Nurse Practitioner Family 07/19/18 Daniela Kamara, [facility]- [address], [address] [place] [address] PCP - General Nurse Practitioner Family 12/13/22 Bianca Farr MD [address] [place] [address] Child and Adolescent Psychiatry 07/19/18 documented as of this encounter
[2024-10-10 07:03] LABS: Hematocrit 30.3 % (37.0-47.0); Hemoglobin 10.0 g/dL (12.0-15.0); Immature Granulocyte Percent A 0.7 % (0-0.5); Lymphocytes Absolute Auto 3.01 K/mm3 (0.9-3.2); Mean Corpuscular HGB Conc 33.0 g/dl (32-36); Mean Corpuscular Hemoglobin 32.6 pg (26-34); Mean Corpuscular Volume 98.7 fl (80-100); Nucleated Red Blood Cells Absolute Auto 0.000 K/mm3 (0.0-0.012); Nucleated Red Blood Cells Perc 0.0 % (0.0-0.2); Platelet Count Result 461 k/mm3 (150-375); Red Blood Count 3.07 M/mm3 (4.2-5.4); White Blood Count 12.3 K/mm3 (4.5-10.0)
--- NOTE | 2024-10-10 07:08 | LDADM ---
This patient, Yue Burns, was admitted to Labor/Delivery/Recovery 102 on 10/10/24 at 05:57. Plans for labor, pain management and were discussed with patient. Patient/family oriented to hospital policies and general routines including ID bracelet, bed and alarms, visiting hours, pain management, procedures, bathroom and other care routines, personal items, smoking policy, room service/diet and guest tray routines, security routines, and visiting hours. Patient/Family are encouraged to report perceived risks to care and to ask questions if they do not understand what they are told or what they should do. See OBIX for further documentation.
[2024-10-10] MEDS: LACTATED RINGERS 1,000 ML 125 ML IV CONT ×3 (07:36→20:09)
[2024-10-10] MEDS: OXYTOCIN 30 UNITS/NS 500 ML 30 UNITS/500 ML BAG IV CONT (07:37)
[2024-10-10] MEDS: ACETAMINOPHEN 500 MG TABLET 1000 MG PO (07:45)
--- NOTE | 2024-10-10 08:40 | WPDHPUPDATE1 ---
History and Physical Update Update Date/Time: 10/10/24 08:40 24-year-old multipara at term presents for elective induction. Artificial rupture membranes was performed. Clear fluid. Pitocin, external monitoring and toco. Active management of labor. History and Physical has been reviewed, including an updated exam of the patient. There are NO changes in the patient's condition. Risks, benefits, and alternatives have been discussed and questions answered. Patient agrees to proceed with procedure.
[2024-10-10] MEDS: fentaNYL CITRATE INJ (*CRX) 100 MCG/2 ML VIAL 50 MCG IV PUSH (10:17)
[2024-10-10 10:19] LABS: Syphilis IgG/IgM Antibody Non-Reactive (Nonreactive)
--- NOTE | 2024-10-10 13:12 | WPDANESEPPF ---
Anes - Initial Pre Proc Eval Procedure: labor epidural Date/Time: 10/10/24 13:12 Surgeon: Long Domínguez MD Pre Op Diagnosis: labor pain Pre Op Diagnosis: IOL Patient Data Age: 24 Gender: F Height: 1.68 m Weight: 129.5 kg Last Vital Signs Temp 36.4 C L 10/10/24 11:00 Pulse 90 10/10/24 13:11 BP 121/68 10/10/24 13:11 Pulse Ox 98 10/10/24 13:07 O2 Del Method Room Air 10/10/24 06:39 Allergies Allergy/AdvReac Type Severity Reaction Status Date / Time No Known Allergies Allergy Verified 03/25/24 07:53 Home Medications ?Medication ?Instructions ?Recorded ?Confirmed ?Type Effexor 225 mg PO DAILY 04/06/23 10/10/24 History Vitamin 1 tab-cap PO DAILY 04/06/23 10/10/24 History lamotrigine 150 mg tablet 150 mg PO DAILY 04/06/23 10/10/24 History ondansetron 4 mg disintegrating 4 mg PO Q6H #30 tabs 04/06/23 10/10/24 Rx tablet quetiapine 300 mg tablet 400 mg PO HS 04/06/23 10/10/24 History quetiapine 50 mg tablet 50 mg PO TID 04/06/23 10/10/24 History acetaminophen 500 mg capsule 1,000 mg (2 x 500 mg) PO Q6H PRN 03/25/24 10/10/24 Rx pain #30 caps vits no.126-ferrous fum 1 tablet PO DAILY 30 days #30 tabs 03/25/24 10/08/24 Rx 28 mg iron-folic acid 800 mcg tablet (Classic ) pyridoxine (vitamin B6) 10 mg 10 mg PO DAILY PRN nausea and 03/25/24 10/10/24 Rx tablet vomiting #30 tabs Laboratory Tests 10/10/24 06:26 WBC 12.3 H K/mm3 (4.5-10.0) RBC 3.07 L M/mm3 (4.2-5.4) Hgb 10.0 L g/dL (12.0-15.0) Hct 30.3 L % (37.0-47.0) MCV 98.7 fl (80-100) MCH 32.6 pg (26-34) MCHC 33.0 g/dl (32-36) RDW 14.6 H % (11.5-14.5) Plt Count 461 H k/mm3 (150-375) MPV 9.6 fl (7.4-10.4) Immature Gran % (Auto) 0.7 H % (0-0.5) Neut % (Auto) 61.6 % (45.5-73.1) Lymph % (Auto) 24.5 % (18.3-44.2) [place] % (Auto) 10.0 H % (2.6-8.5) Eos % (Auto) 2.7 % (0-4.4) Baso % (Auto) 0.5 % (0.2-1.2) Lymph # (Auto) 3.01 K/mm3 (0.9-3.2) [place] # (Auto) 1.2 H K/mm3 (0.1-0.6) Eos # (Auto) 0.3 K/mm3 (0-0.3) Baso # (Auto) 0.1 K/mm3 (0.0-0.1) Abs Immat Gran (auto) 0.09 H K/mm3 (0.00-0.031) Absolute Neuts (auto) 7.6 H K/mm3 (1.3-6.7) Absolute Nucleated RBC 0.000 K/mm3 (0.0-0.012) Nucleated RBC % 0.0 % (0.0-0.2) Syphilis IgG/IgM Ab Non-reactive (Nonreactive) Blood Type A Positive Antibody Screen Negative Patient hx anesthesia problems: none Family hx anesthesia problems: none Results Review: All pre-operative results and documents have been reviewed as part of the pre-operative evaluation. [facility] Past Medical History Medical History (Updated 09/30/24 @ 21:15 by Long Domínguez MD) Placenta previa during 2nd Obesity (BMI 30-39.9) Depression Anxiety Bipolar 1 disorder Social History Social History Smoking status: Former smoker Tobacco type: cigarettes Second hand tobacco smoke exposure: No Substance use: former Do You Feel Safe in your Home?: No Lack of Transportation: No Lack of Food: Never True Current Housing: I Have Housing Concerned About Future Housing: No Difficulty Paying Gas/Electric Bills: No Difficulty Paying for Meds: No Currently Unemployed: YES Education: High School Diploma/GED Difficulty w/ Childcare or Family Care: No Spiritual care concerns: No Anes - Eval Final PreProcedure Day of Procedure 10/10/24 13:12 Patient weight: morbidly obese ASA classification: III Anesthetic plan: proceed Anesthesia type and monitoring: regional epidural and standard monitoring Results Review: All pre-operative results and documents have been reviewed as part of the pre-operative evaluation. Informed Consent: The patient's anesthetic plan and its attendant risks and benefits were discussed with the patient/family/POA. Questions were solicited and answers provided to the satisfaction of the patient/family/POA.
[2024-10-10] MEDS: FAMOTIDINE 20 MG/2 ML VIAL IV PUSH (16:34)
[2024-10-10] MEDS: ONDANSETRON INJ 4 MG/2 ML VIAL IV PUSH ×2 (16:37→23:47)
[2024-10-11] VITALS (152 sets, daily range): BP systolic 93–151; BP diastolic 30–100; PULSE 85–242; RESP 16–18; TEMP 36.8–37.1; O2SAT 90–100
[2024-10-11] MEDS: ONDANSETRON INJ 4 MG/2 ML VIAL IV PUSH (05:30)
[2024-10-11] MEDS: AMPICILLIN SODIUM 2 GM in SODIUM CHLORIDE 0.9% IV 100 ML 200 ML IVPB (06:30)
--- NOTE | 2024-10-11 10:22 | PM.OBPRVD ---
OB - Vaginal Delivery Note Procedure Delivery date: 10/11/24 Induction method: AROM and Per Pitocin Protocol Delivery monitor: External FHT and External Uterine Route of delivery: Episiotomy description: None Laceration Description: Perineal - 1st Degree Delivery repair: vicryl Specimen: No Quantitative Blood Loss (ml): 200 Anesthesia type: Epidural Disposition: Floor Complications: No immediate complications
[2024-10-11] MEDS: OXYTOCIN 30 UNITS/NS 500 ML 30 UNITS/500 ML BAG 125 UNITS IV CONT (10:30)
[2024-10-11] MEDS: IBUPROFEN 600 MG TABLET (10:55)
[2024-10-11] MEDS: CARBOPROST TROMETHAMINE 250 MCG/ML AMPUL IM (11:38)
--- NOTE | 2024-10-11 11:50 | PM.OBPNVD ---
OB - PN: Subj Subjective Date/time seen: 10/11/24 11:50 Interval history: Called for hemorrhage-total blood loss including the was around 1085cc after manual removal of clots. Clots were mainly removed with digital exploration of the intrauterine cavity. Shelbi was then placed. Bleeding resolved. OB - PN: Obj Data Labs 10/10/24 06:26 OB - PN A/P Assessment and Plan (1) hemorrhage: Code(s): O72.1 - Other immediate hemorrhage Status: Acute Assessment and Plan: Called for hemorrhage-total blood loss including the was around 1085cc after manual removal of clots. Clots were mainly removed with digital exploration of the intrauterine cavity. Shelbi was then placed. Bleeding resolved. Time Spent With Patient Time: Total time spent is greater than 50% in coordination of care (as documented) at patient's floor/unit and/or counseling patient:
--- NOTE | 2024-10-11 13:06 | PC.NURSE ---
Called into pt's room. Shelbi has come out. Dr. Domínguez informed Shelbi fell out and 200 ml of blood in cannister.
--- NOTE | 2024-10-11 13:51 | PC.NURSE ---
Patient transferred to post room #281 via bed. Support person present. Oriented to unit, room, information board, rooming in, admission packet and security measures. Patient verbalizes understanding.
--- NOTE | 2024-10-11 15:06 | PC.NURSE ---
See previous note from Mary Nichols RN regarding when Shelbi fell out, time on her note was 1306 but the actual time should have been charted as 1506, as that is when she spoke with Dr. Domínguez while in the patient's room with this RN present. This RN also deflated the balloon bulb on the Shelbi and removed 60mls of normal saline.
[2024-10-11] MEDS: ceFAZolin 2 GM in SODIUM CHLORIDE 0.9% IV 50 ML 100 ML IVPB (16:04)
[2024-10-11] MEDS: VENLAFAXINE HCL XR 75 MG CAP.ER.24H 225 MG PO (19:11)
[2024-10-11] MEDS: lamoTRIgine 50 MG TABLET 150 MG PO (19:11)
[2024-10-11] MEDS: QUEtiapine FUMARATE XR 200 MG TAB.ER.24H 400 MG PO (20:34)
[2024-10-11] MEDS: PYRIDOXINE XX (21:24)
[2024-10-11] MEDS: BENZOCAINE 20% AER SPR (*SP) 56 GM CAN 1 SPRAY (21:25)
[2024-10-11] MEDS: WITCH HAZEL 40 PADS 1 PAD (21:25)
[2024-10-12 04:10] VITALS: BP 107/56; PULSE 98; RESP 18; TEMP 36.6; O2SAT 99
[2024-10-12 05:11] LABS: Hematocrit 22.5 % (37.0-47.0); Hemoglobin 7.4 g/dL (12.0-15.0); Mean Corpuscular HGB Conc 32.9 g/dl (32-36); Mean Corpuscular Hemoglobin 33.0 pg (26-34); Mean Corpuscular Volume 100.4 fl (80-100); Platelet Count Result 347 k/mm3 (150-375); Red Blood Count 2.24 M/mm3 (4.2-5.4); White Blood Count 28.3 K/mm3 (4.5-10.0)
[2024-10-12 05:32] LABS: Anisocytosis 1+; Band Neutrophils Percent 1 % (0-6); Hypochromasia 1+; Lymphocytes Absolute Manual 2.54 K/mm3 (1.1-4.5); Lymphocytes Percent Manual 9.0 % (18-44); Microcytosis 1+ (NORMAL); Monocytes Absolute Manual 1.41 K/mm3 (0.1-0.90); Monocytes Percent Manual 5 % (3-9); Neutrophils Absolute Manual 24.33 K/mm3 (1.3-6.7); Neutrophils Percent Manual 85 % (46-73); Schistocytes None Seen; Total Cells Counted 100
[2024-10-12 07:45] VITALS: BP 102/75; PULSE 106; RESP 16; TEMP 37.5; O2SAT 100
[2024-10-12] MEDS: MULTIVIT/MIN/PREN/FOL AC/IRON TABLET 1 TAB PO (07:54)
[2024-10-12] MEDS: ACETAMINOPHEN 500 MG TABLET 1000 MG PO (07:56)
[2024-10-12 08:00] VITALS: PULSE 106; RESP 16; O2SAT 100
--- NOTE | 2024-10-12 08:08 | P.PNOB_ITS ---
OB - PN: Subj Subjective Date/time seen: 10/12/24 08:08 Interval history: pp day 1 IV site irritated plan oral iron desires d/c OB - PN: Obj Data Labs 10/12/24 04:17 Labs: Laboratory Results - last 24 hr 10/12/24 04:17 WBC 28.3 H RBC 2.24 L Hgb 7.4 L Hct 22.5 L MCV 100.4 H MCH 33.0 MCHC 32.9 RDW 14.5 Plt Count 347 MPV 9.9 Immature Gran % (Auto) Not Reportable Neut % (Auto) Not Reportable Lymph % (Auto) Not Reportable [place] % (Auto) Not Reportable Eos % (Auto) Not Reportable Baso % (Auto) Not Reportable Lymph # (Auto) Not Reportable [place] # (Auto) Not Reportable Eos # (Auto) Not Reportable Baso # (Auto) Not Reportable Abs Immat Gran (auto) Not Reportable Absolute Neuts (auto) Not Reportable Absolute Nucleated RBC Not Reportable Total Counted 100 Neutrophils % (Manual) 85 H Band Neutrophils % 1 Lymphocytes % (Manual) 9.0 L Monocytes % (Manual) 5 Nucleated RBC % Not Reportable Abs Neuts (Manual) 24.33 H Abs Lymphs (Manual) 2.54 Abs Monocytes (Manual) 1.41 H Platelet Estimate Increased Hypochromasia 1+ Anisocytosis 1+ Microcytosis 1+ Schistocytes None seen OB - PN A/P Plan day: 1 Plan: routine care and discharge home Time Spent With Patient Time: Total time spent is greater than 50% in coordination of care (as documented) at patient's floor/unit and/or counseling patient: Review of Systems 2 Review of Systems: All systems reviewed & are unremarkable except as noted in HPI and below Exam 2 Const: General: cooperative, healthy appearing and comfortable Chest: Chest palpation & inspection: normal inspection of the chest Resp: Effort & Inspection: normal respiratory effort
--- NOTE | 2024-10-12 08:11 | P.DS_ITS ---
DS: Admitting Diagnosis Discharge Date 10/12/24 Admitting Diagnosis IOL DS: Discharge Diagnosis Discharge Diagnosis (1) Vaginal delivery: Code(s): O80 - Encounter for full-term uncomplicated delivery Status: Acute OB - DS: Summary OB Procedures : None OB Procedures Intrapartum: Spontaneous Vag Delivery OB Procedures: : None Peripartum Data Laceration Description: Perineal - 1st Degree Episiotomy description: None Time Spent with Patient Time attestation: Total time spent providing and/or coordinating discharge services: DS: Data Data Completed and Pending Labs on day of discharge: Labs from last 24 hours 10/12/24 04:17 WBC 28.3 H RBC 2.24 L Hgb 7.4 L Hct 22.5 L MCV 100.4 H MCH 33.0 MCHC 32.9 RDW 14.5 Plt Count 347 MPV 9.9 Immature Gran % (Auto) Not Reportable Neut % (Auto) Not Reportable Lymph % (Auto) Not Reportable [place] % (Auto) Not Reportable Eos % (Auto) Not Reportable Baso % (Auto) Not Reportable Lymph # (Auto) Not Reportable [place] # (Auto) Not Reportable Eos # (Auto) Not Reportable Baso # (Auto) Not Reportable Abs Immat Gran (auto) Not Reportable Absolute Neuts (auto) Not Reportable Absolute Nucleated RBC Not Reportable Total Counted 100 Neutrophils % (Manual) 85 H Band Neutrophils % 1 Lymphocytes % (Manual) 9.0 L Monocytes % (Manual) 5 Nucleated RBC % Not Reportable Abs Neuts (Manual) 24.33 H Abs Lymphs (Manual) 2.54 Abs Monocytes (Manual) 1.41 H Platelet Estimate Increased Hypochromasia 1+ Anisocytosis 1+ Microcytosis 1+ Schistocytes None seen Discharge Plan Discharge Attending physician on discharge: Long Domínguez Discharging Clinician: Silvia Hanson Patient Disposition: Home Activity: pelvic rest Diet: regular Patient Instructions: Antibiotic Form Patient Language: Luxembourgish Stand Alone Forms: General Discharge Information Follow-up/Referrals: Long Domínguez MD [Physician, CLEANING CUSTODIAN] - 4 Weeks Discharge Medications: New ferrous gluconate 324 mg (38 mg iron) tablet 324 mg PO DAILY Qty: 30 0RF Continued lamotrigine 150 mg tablet 150 mg PO DAILY quetiapine 300 mg tablet 400 mg PO HS quetiapine 50 mg tablet 50 mg PO TID Effexor 225 mg PO DAILY Vitamin 1 tab-cap PO DAILY ondansetron 4 mg Tablet,Disintegrating 4 mg PO Q6H Qty: 30 0RF acetaminophen 500 mg capsule 1,000 mg PO Q6H PRN (Reason: pain) Qty: 30 0RF Classic 28 mg iron- 800 mcg tablet 1 tablet PO DAILY 30 Days Qty: 30 0RF pyridoxine (vitamin B6) 10 mg tablet 10 mg PO DAILY PRN (Reason: nausea and vomiting) Qty: 30 0RF Date of admission: 10/10/24 05:57 Primary Care Provider: Letty,Carolina Gutiérrez Admitting Provider: Long Domínguez Attending physician on admission: Long Domínguez Condition: Stable
--- NOTE | 2024-10-12 14:32 | PC.NURSE ---
1400. Consulted with mother concerning needs and she shared her ability to independently latch infant optimally without pain. Mother is feeding appropriately for growth of infant and understands stimulating to eat if needed. has had appropriate feedings in the last 24 hours meets the outcomes for weight, output, blood sugar and jaundice at this time. Reinforced understanding of milk production, transition of milk, signs of adequate intake, transition of stool, prevention/relief of engorgement, plugged ducts, mastitis, responsive watching for feeding cues, the different methods of stimulating to breastfeed 1-3 hours after the start of the last feeding, community resources, and when to call a provider using the resource of the feeding sheet along with the mom and baby guide. Mother voiced understanding of the information shared, is confident to continue effectively her at home, when to call for assistance, denies any additional assistance or education at this time. Reported to the Primary RN.
[2024-10-15 11:07] VITALS: BP 120/85; PULSE 98; RESP 18; TEMP 36.6; O2SAT 97
== END 2024-10-12 14:10 | disposition home or self-care (01) | DRG 542 ==
LOC: ANHLDR 06:04 → ANHOB2 10-11 13:59
PROVIDERS: Advanced Practice Midwife; Admitting Provider Obstetrics & Gynecology; PCP Nurse Practitioner Family; Visit Provider Obstetrics & Gynecology
DX: O42.02 Full-term premature rupture of membranes, onset of labor within 24 hours of rupture (principal); Z37.0 Single live birth; Z3A.39 39 weeks gestation of pregnancy; O70.0 First degree perineal laceration during delivery; O72.1 Other immediate postpartum hemorrhage
CPT/HCPCS: 36415; 85025; 86593; 86850; 86900; 86901; J0690; A9270; J0290; J2405; J2590; J2795; J3010; J7120